=== PATIENT | female | born 1995 | race Caucasian/White ===

== ENCOUNTER 2020-01-07 22:16 | Observation (INO) | payer OTHER, SELFPAY ==
--- NOTE | 2020-01-07 22:15 | PC.NURSE ---
Report given to MICHAEL Mcmillan in OB.
[2020-01-07 22:25] VITALS: BP 139/89; PULSE 105; RESP 20; TEMP 37.2; BMI 30.9
[2020-01-07 23:01] VITALS: BP 122/70; PULSE 102
[2020-01-07 23:18] VITALS: BP 122/70; PULSE 86; RESP 18
--- NOTE | 2020-01-07 23:30 | OBADM ---
This patient, Keshia Huston, admitted to the OB room OB Post 113 for observation. Patient/family oriented to hospital policies and general routines including ID bracelet, bed and alarms, visiting hours, pain management, procedures, bathroom and other care routines, personal items, smoking policy, room service/diet, and visiting hours. Patient/Family are encouraged to report perceived risks to care and to ask questions if they do not understand what they are told or what they should do.
--- NOTE | 2020-01-13 08:52 | PM.OBTRLD ---
OB - Triage/Final Diagnosis Visit Information Date of evaluation: 01/08/20 Reason for evaluation: threatened labor
== END 2020-01-07 23:20 | disposition home or self-care (01) ==
PROVIDERS: Admitting Provider Obstetrics & Gynecology; PCP Physician Assistant; Visit Provider Obstetrics & Gynecology
DX: O47.02 False labor before 37 completed weeks of gestation, second trimester (principal); Z3A.26 26 weeks gestation of pregnancy
CPT/HCPCS: G0378; G0379

== ENCOUNTER 2020-02-15 17:05 | Outpatient (CLI) | payer OTHER, SELFPAY ==
[2020-02-15] VITALS (10 sets, daily range): BP systolic 124–142; BP diastolic 73–82; PULSE 88–114; TEMP 37.4; BMI 34.7
[2020-02-15 17:45] LABS: Basophils Percent Auto 0.2 % (0.2-1.2); Eosinophils Absolute Auto 0.1 K/mm3 (0-0.3); Eosinophils Percent Auto 1.3 % (0-4.4); Hematocrit 34.2 % (37.0-47.0); Immature Granulocyte Absolute 0.06 K/mm3 (0.00-0.031); Immature Granulocyte Percent A 0.5 % (0-0.5); Lymphocytes Absolute Auto 2.19 K/mm3 (0.9-3.2); Lymphocytes Percent Auto 19.7 % (18.3-44.2); Mean Corpuscular HGB Conc 35.1 g/dl (32-36); Mean Corpuscular Volume 85.5 fl (80-100); Mean Platelet Volume 10.2 fl (7.4-10.4); Monocytes Absolute Auto 0.5 K/mm3 (0.1-0.6); Monocytes Percent Auto 4.9 % (2.6-8.5); Neutrophils Absolute Auto 8.2 K/mm3 (1.3-6.7); Neutrophils Percent Auto 73.4 % (45.5-73.1); Platelet Count Result 272 k/mm3 (150-375); Red Cell Distribution Width 12.2 % (11.5-14.5); White Blood Count 11.1 K/mm3 (4.5-10.0)
[2020-02-15 17:46] LABS: Add Urine Microscopic? NO; Appearance Urine Clear (Clear); Bilirubin Urine Negative (Negative); Blood Urine Negative (Negative); Color Urine Yellow (Yellow); Glucose Urine UA Negative (Negative); Ketones Urine Negative (Negative); Leukocyte Esterase Ur Negative LEU/UL (Negative); Nitrate Urine Negative (Negative); Protein Urine Negative (Negative); Specific Grav Ur 1.013 (1.001-1.035); Urobilinogen Urine Negative mg/dL (<2.0)
[2020-02-15 17:48] LABS: Creatinine Urine 51.7 mg/dL; Total Protein Urine Random 12 mg/dL
[2020-02-15 17:54] LABS: Alanine Aminotransferase 66 U/L (4-35); Albumin Level 3.7 g/dL (3.5-5.1); Alkaline Phosphatase 91 U/L (38-126); Anion Gap 9 mmol/L (8-16); Aspartate Amino Transferase 49 U/L (14-36); Bilirubin,Total 0.3 mg/dL (0.2-1.3); Blood Urea Nitrogen 9 mg/dL (7-17); Calcium 9.4 mg/dL (8.4-10.2); Carbon Dioxide 24 mmol/L (22-30); Chloride 101 mmol/L (98-107); Estimated Glomerular Filt Rate > 60; Glucose 101 mg/dL (65-105); Potassium 3.8 mmol/L (3.4-5.0); Sodium 134 mmol/L (137-145)
[2020-02-15] MEDS: NIFEdipine 30 MG TAB.ER.24 PO (18:35)
--- NOTE | 2020-02-15 19:04 | PC.NURSE ---
1805 - Second cup of ice water given. Pt states she does not feeling any contractions. Contractions palpate mild.
== END 2020-02-15 19:41 | disposition home or self-care (01) ==
LOC: ANHOBOP 17:15 → ANHOBPP 17:16
PROVIDERS: PCP Physician Assistant; Visit Provider Obstetrics & Gynecology
DX: O13.9 Gestational [pregnancy-induced] hypertension without significant proteinuria, unspecified trimester (principal)
CPT/HCPCS: 36415; 59025; 80053; 81003; 82570; 84156; 84550; 85025; 99199; A9270

== ENCOUNTER 2020-02-16 17:45 | Outpatient (NON) | payer OTHER, SELFPAY ==
[2020-02-16 18:26] VITALS: BMI 34.7
[2020-02-16 20:29] LABS: Collection Time Urine 24 HOURS
[2020-02-16 20:59] LABS: Patient Weight 215 Lbs; Total Volume 24 Hour Urine 2200 ml
[2020-02-16 21:09] LABS: Creatinine Clearance Urine 163.3 ml/min (75-125); Creatinine Urine 63.5 mg/dL; Total Protein Urine 24 Hr 308 MG/DAY (28-141); Total Protein Urine Random 14 mg/dL
== END 2020-02-16 17:46 ==
LOC: ANHOBOP 18:15
PROVIDERS: PCP Physician Assistant; Referring Provider Obstetrics & Gynecology; Visit Provider Obstetrics & Gynecology
DX: O16.9 Unspecified maternal hypertension, unspecified trimester (principal); Z3A.00 Weeks of gestation of pregnancy not specified
CPT/HCPCS: 81050; 82575; 84156

== ENCOUNTER 2020-03-18 13:10 | Inpatient (IN) | payer MEDICAID, SELFPAY ==
[2020-03-18] VITALS (88 sets, daily range): BP systolic 84–153; BP diastolic 53–108; PULSE 87–140; TEMP 36.8–37.6; O2SAT 97–100; BMI 36.6
[2020-03-18 11:32] LABS: Creatinine Urine 18.5 mg/dL; Total Protein Urine Random 13 mg/dL
[2020-03-18 11:36] LABS: Basophils Percent Auto 0.2 % (0.2-1.2); Eosinophils Absolute Auto 0.1 K/mm3 (0-0.3); Eosinophils Percent Auto 1.1 % (0-4.4); Hematocrit 33.6 % (37.0-47.0); Hemoglobin 11.6 g/dL (12.0-15.0); Immature Granulocyte Absolute 0.06 K/mm3 (0.00-0.031); Immature Granulocyte Percent A 0.6 % (0-0.5); Lymphocytes Absolute Auto 1.89 K/mm3 (0.9-3.2); Lymphocytes Percent Auto 17.7 % (18.3-44.2); Mean Corpuscular HGB Conc 34.5 g/dl (32-36); Mean Corpuscular Hemoglobin 29.1 pg (26-34); Mean Corpuscular Volume 84.2 fl (80-100); Mean Platelet Volume 10.9 fl (7.4-10.4); Monocytes Absolute Auto 0.5 K/mm3 (0.1-0.6); Monocytes Percent Auto 4.6 % (2.6-8.5); Neutrophils Absolute Auto 8.1 K/mm3 (1.3-6.7); Neutrophils Percent Auto 75.8 % (45.5-73.1); Platelet Count Result 296 k/mm3 (150-375); Red Blood Count 3.99 M/mm3 (4.2-5.4); Red Cell Distribution Width 12.2 % (11.5-14.5); White Blood Count 10.7 K/mm3 (4.5-10.0)
[2020-03-18 11:43] LABS: Add Urine Microscopic? YES; Appearance Urine Cloudy (Clear); Bacteria Urine 3+ /hpf; Bilirubin Urine Negative (Negative); Blood Urine Negative (Negative); Color Urine Straw (Yellow); Glucose Urine UA Negative (Negative); Ketones Urine Negative (Negative); Leukocyte Esterase Ur Trace LEU/UL (NEGATIVE); Nitrate Urine Negative (Negative); Protein Urine Negative (Negative); Specific Grav Ur 1.005 (1.001-1.035); Squamous Epithelial Cell Urine Moderate /hpf (Few); Transitional Epi Cells Urine Rare /hpf (None Seen); Urobilinogen Urine Negative mg/dL (<2.0)
[2020-03-18 11:48] LABS: Alanine Aminotransferase 70 U/L (4-35); Albumin Level 3.7 g/dL (3.5-5.1); Alkaline Phosphatase 124 U/L (38-126); Anion Gap 11 mmol/L (8-16); Aspartate Amino Transferase 60 U/L (14-36); Bilirubin,Total 0.3 mg/dL (0.2-1.3); Blood Urea Nitrogen 9 mg/dL (7-17); Calcium 9.1 mg/dL (8.4-10.2); Carbon Dioxide 20 mmol/L (22-30); Chloride 106 mmol/L (98-107); Estimated Glomerular Filt Rate > 60; Glucose 109 mg/dL (65-105); Potassium 4.2 mmol/L (3.4-5.0); Sodium 137 mmol/L (137-145); Uric Acid 4.8 mg/dL (2.5-7.5)
[2020-03-18] MEDS: LACTATED RINGERS 1,000 ML 125 ML IV CONT ×2 (14:41→20:12)
[2020-03-18] MEDS: OXYTOCIN 30 UNITS/NS 500 ML 30 UNITS/500 ML BAG 6 UNITS IV CONT (14:42)
--- NOTE | 2020-03-18 14:53 | LDADM ---
This patient, Keshia Huston, was admitted to Labor/Delivery/Recovery 107 on 03/18/20 at 13:10. Plans for labor, pain management and were discussed with patient. Patient/family oriented to hospital policies and general routines including ID bracelet, bed and alarms, visiting hours, pain management, procedures, bathroom and other care routines, personal items, smoking policy, room service/diet and guest tray routines, security routines, and visiting hours. Patient/Family are encouraged to report perceived risks to care and to ask questions if they do not understand what they are told or what they should do. See OBIX for further documentation.
--- NOTE | 2020-03-18 14:55 | PC.NURSE ---
1253-S.Krzysztof [facility] called with lab results and bp's. Stated she would discuss with and call back with further orders.
--- NOTE | 2020-03-18 14:56 | PC.NURSE ---
1258-S.Krzysztof [facility]UARE[facility] called back in with orders to keep pt for induction with cervidil. Repeat labs in 12 hrs.
--- NOTE | 2020-03-18 16:27 | WPDOBADMIT ---
Obstetrics - Admit Note Admission Note: record reviewed. No pertinent additions to the history and/or any subsequent changes in the physical findings that are not consistent with the expected course of the were found. admit for MIL for preeclampsia, consulted with dr. kinsey, cervix /3, arom large amount of clear odorless fluid Additions to the history and/or subsequent changes in the physical findings follow. None.
--- NOTE | 2020-03-18 18:58 | WPDANESEPP ---
Anes - Eval Pre Procedure Procedure: labor epidural Date/Time: 03/18/20 18:58 Surgeon: Henrry Preop Diagnosis: labor pain Pre Op Diagnosis: Hip Eval Patient Data Age: 25 Gender: F Height: 1.68 m Weight: 102.75 kg Last Vital Signs Temp 37.0 C 03/18/20 16:33 Pulse 103 H 03/18/20 18:45 BP 125/77 03/18/20 18:45 Allergies Allergy/AdvReac Type Severity Reaction Status Date / Time No Known Allergies Allergy Verified 03/14/20 12:35 Home Medications Medication Instructions Recorded Confirmed Type PNV cmb#95-ferrous fumarate-FA 1 tablet PO DAILY 01/07/20 03/18/20 History [] nifedipine [Procardia XL] 30 mg PO DAILY #30 tablet 02/15/20 03/18/20 Rx famotidine [Pepcid] 20 mg PO BID 03/14/20 03/18/20 History Laboratory Tests 03/18/20 03/18/20 03/18/20 10:54 10:54 10:54 WBC 10.7 K/mm3 H K/mm3 (4.5-10.0) RBC 3.99 M/mm3 L M/mm3 (4.2-5.4) Hgb 11.6 g/dL L g/dL (12.0-15.0) Hct 33.6 % L % (37.0-47.0) MCV 84.2 fl fl (80-100) MCH 29.1 pg pg (26-34) MCHC 34.5 g/dl g/dl (32-36) RDW 12.2 % % (11.5-14.5) Plt Count 296 k/mm3 k/mm3 (150-375) MPV 10.9 fl H fl (7.4-10.4) Immature Gran % (Auto) 0.6 % H % (0-0.5) Neut % (Auto) 75.8 % H % (45.5-73.1) Lymph % (Auto) 17.7 % L % (18.3-44.2) [place] % (Auto) 4.6 % % (2.6-8.5) Eos % (Auto) 1.1 % % (0-4.4) Baso % (Auto) 0.2 % % (0.2-1.2) Lymph # (Auto) 1.89 K/mm3 K/mm3 (0.9-3.2) [place] # (Auto) 0.5 K/mm3 K/mm3 (0.1-0.6) Eos # (Auto) 0.1 K/mm3 K/mm3 (0-0.3) Baso # (Auto) 0.0 K/mm3 K/mm3 (0.0-0.1) Abs Immat Gran (auto) 0.06 K/mm3 H K/mm3 (0.00-0.031) Absolute Neuts (auto) 8.1 K/mm3 H K/mm3 (1.3-6.7) Absolute Nucleated RBC 0.0 K/mm3 K/mm3 (0.0-0.012) Nucleated RBC % 0.0 % % (0.0-0.2) Sodium Potassium Chloride Carbon Dioxide Anion Gap BUN Creatinine Estim Creat Clear Calc Estimated GFR Glucose Uric Acid Calcium Total Bilirubin AST ALT Alkaline Phosphatase Total Protein Albumin Urine Color Straw (Yellow) Urine Appearance Cloudy H (Clear) Urine pH 7.0 (5.0-9.0) Ur Specific [place] 1.005 (1.001-1.035) Urine Protein Negative mg/dL mg/dL (Negative) Urine Glucose (UA) Negative mg/dL mg/dL (Negative) Urine Ketones Negative mg/dL mg/dL (Negative) Ur Blood (Man) Negative (Negative) Urine Nitrate Negative (Negative) Urine Bilirubin Negative (Negative) Urine Urobilinogen Negative mg/dL mg/dL (<2.0) Ur Leukocyte Esterase Trace DONNA/UL H DONNA/UL (NEGATIVE) Urine RBC 3-5 /hpf H /hpf (0-2) Urine WBC 10-15 /hpf H /hpf (0-3) Ur Squamous Epith Cells Moderate /hpf H /hpf (Few) Ur Transition Epith Cell Rare /hpf /hpf (None Seen) Urine Bacteria 3+ /hpf H /hpf Hyaline Casts 3-4 /lpf H /lpf (None) U Random Total Protein 13 mg/dL mg/dL Urine Creatinine 18.5 mg/dL mg/dL RPR Blood Type Antibody Screen 03/18/20 03/18/20 03/18/20 10:54 13:33 14:28 WBC RBC Hgb Hct MCV MCH MCHC RDW Plt Count MPV Immature Gran % (Auto) Neut % (Auto) Lymph % (Auto) [place] % (Auto) Eos % (Auto) Baso % (Auto) Lymph # (Auto) [place] # (Auto)
--- NOTE | 2020-03-18 23:51 | P.PCNOB_ITS ---
OB - Delivery Note Procedure Delivery date: 03/18/20 Procedure: Vaginal delivery. events: Labor < 37 Weeks and Pre-Eclampsia Intrapartal events: Mild Preeclampsia Induction method: AROM and per pitocin protocol Delivery monitor: external FHT and external uterine Route of delivery: Episiotomy description: None Laceration Description: None Specimen: Yes Estimated blood loss (mL): 155 Anesthesia type: Epidural Disposition: other () [place] Baby Date of : 03/18/20 Time of : 23:36 Weeks of gestation at delivery: 36 Infant gender: Female Weight (pounds): 6 Weight (ounces): 10 presentation: vertex position: Right Occiput Anterior Placenta delivery description: Spontaneous cord vessel description: 3 Vessels and Clamped/Cut score one minute: 7 score five minutes: 9 Narrative: Mother and baby skin to skin and in stable condition.
[2020-03-19] VITALS (13 sets, daily range): BP systolic 95–156; BP diastolic 29–90; PULSE 76–123; RESP 13–18; TEMP 36.7–37.3; O2SAT 95–98
--- NOTE | 2020-03-19 00:01 | PM.IMHP ---
H&P: HPI History of Present Illness Date/Time: 03/19/20 00:01 Chief complaint: Hip Eval Narrative: Keshia Huston is a 25 year old female [facility] Family History Family History Grandparent Diabetes mellitus Grandparent Cerebrovascular accident Social History Social History Smoking status: Never smoker Substance use: never Spiritual care concerns: No Meds Home Medications and Allergies Home Medications Medication Instructions Recorded Confirmed Type PNV cmb#95-ferrous fumarate-FA 1 tablet PO DAILY 01/07/20 03/18/20 History [] nifedipine [Procardia XL] 30 mg PO DAILY #30 tablet 02/15/20 03/18/20 Rx famotidine [Pepcid] 20 mg PO BID 03/14/20 03/18/20 History Allergies Allergy/AdvReac Type Severity Reaction Status Date / Time No Known Allergies Allergy Verified 03/14/20 12:35 Vital Signs Vital Signs - 24 hr 03/18/20 11:09 03/18/20 11:15 03/18/20 11:16 Temperature 37.4 C Pulse Rate 112 H 99 Blood Pressure 138/86 135/84 Blood Pressure [Left Arm] Pulse Oximetry 03/18/20 11:31 03/18/20 11:46 03/18/20 12:01 Temperature Pulse Rate 96 95 106 H Blood Pressure 137/90 134/79 131/56 L Blood Pressure [Left Arm] Pulse Oximetry 03/18/20 12:07 03/18/20 14:05 03/18/20 14:15 Temperature Pulse Rate 106 H 91 104 H Blood Pressure 146/89 H 141/85 H Blood Pressure [Left Arm] 131/56 L Pulse Oximetry 03/18/20 14:45 03/18/20 15:00 03/18/20 15:22 Temperature 36.8 C Pulse Rate 102 H 100 114 H Blood Pressure 145/85 H 141/75 H 131/81 Blood Pressure [Left Arm] Pulse Oximetry 03/18/20 15:30 03/18/20 15:45 03/18/20 16:00 Temperature Pulse Rate 105 H 98 99 Blood Pressure 135/89 125/81 133/78 Blood Pressure [Left Arm] Pulse Oximetry 03/18/20 16:15 03/18/20 16:30 03/18/20 16:33 Temperature 37.0 C Pulse Rate 99 102 H Blood Pressure 136/91 H 145/79 H Blood Pressure [Left Arm] Pulse Oximetry 03/18/20 16:45 03/18/20 17:00 03/18/20 17:16 Temperature Pulse Rate 105 H 99 117 H Blood Pressure 131/84 132/88 133/108 H Blood Pressure [Left Arm] Pulse Oximetry 03/18/20 17:30 03/18/20 17:45 03/18/20 18:00 Temperature Pulse Rate 106 H 100 101 H Blood Pressure 133/84 130/80 145/79 H Blood Pressure [Left Arm] Pulse Oximetry 03/18/20 18:15 03/18/20 18:30 03/18/20 18:45 Temperature Pulse Rate 95 101 H 103 H Blood Pressure 135/80 139/80 125/77 Blood Pressure [Left Arm] Pulse Oximetry 03/18/20 19:00 03/18/20 19:15 03/18/20 19:31 Temperature Pulse Rate 115 H 111 H 116 H Blood Pressure 129/80 84/56 L 143/72 H Blood Pressure [Left Arm] Pulse Oximetry 03/18/20 19:46 03/18/20 20:09 03/18/20 20:11 Temperature Pulse Rate 99 109 H Blood Pressure 123/56 L 153/86 H Blood Pressure [Left Arm] Pulse Oximetry 99 03/18/20 20:14 03/18/20 20:15 03/18/20 20:19 Temperature Pulse Rate 113 H Blood Pressure 137/87 Blood Pressure [Left Arm] Pulse Oximetry 100 100 03/18/20 20:21 03/18/20 20:23 03/18/20 20:24 Temperature Pulse Rate 102 H 115 H Blood Pressure 141/73 H 127/71 Blood Pressure [Left Arm] Pulse Oximetry 100 03/18/20 20:25 03/18/20 20:26 03/18/20 20:28 Temperature Pulse Rate 98 106 H Blood Pressure 137/72 137/73 Blood Pressure [Left Arm] Pulse Oximetry 98 03/18/20 20:30 03/18/20 20:31 03/18/20 20:36 Temperature Pulse Rate 107 H Blood Pressure 132/67 Blood Pressure [Left Arm] Pulse Oximetry 98 98 03/18/20 20:41 03/18/20 20:45 03/18/20 20:46 Temperature Pulse Rate 100 Blood Pressure 132/76 Blood Pressure [Left Arm] Pulse Oximetry 99 98 03/18/20 20:51 03/18/20 20:56 03/18/20 21:00 Temperature Pulse Rate 96 Blood Pressure 134/79 Blood Pressure [Left Arm]
[2020-03-19] MEDS: OXYTOCIN 30 UNITS/NS 500 ML 30 UNITS/500 ML BAG 125 UNITS IV CONT (00:17)
[2020-03-19] MEDS: IBUPROFEN 600 MG TABLET PO ×3 (01:58→15:59)
[2020-03-19] MEDS: WITCH HAZEL 40 PADS 1 PAD TOPICAL (01:59)
[2020-03-19] MEDS: BENZOCAINE 20% AER SPR (*SP) 56 GM CAN 1 SPRAY TOPICAL (02:03)
[2020-03-19 05:34] LABS: Hematocrit 29.4 % (37.0-47.0)
[2020-03-19 05:58] LABS: Alanine Aminotransferase 71 U/L (4-35); Albumin Level 2.8 g/dL (3.5-5.1); Alkaline Phosphatase 100 U/L (38-126); Anion Gap 5 mmol/L (8-16); Aspartate Amino Transferase 70 U/L (14-36); Bilirubin,Total 0.4 mg/dL (0.2-1.3); Blood Urea Nitrogen 9 mg/dL (7-17); Calcium 8.7 mg/dL (8.4-10.2); Carbon Dioxide 24 mmol/L (22-30); Chloride 104 mmol/L (98-107); Estimated CRCL calculation 146 ml/min; Estimated Glomerular Filt Rate > 60; Glucose 112 mg/dL (65-105); Potassium 3.7 mmol/L (3.4-5.0); Sodium 133 mmol/L (137-145); Uric Acid 5.2 mg/dL (2.5-7.5)
[2020-03-19 07:35] LABS: Rapid Plasma Reagin Non-Reactive (NonReactive)
--- NOTE | 2020-03-19 07:40 | WPDANLDPN2 ---
Anes-Prog Note L&D Date/Time: 03/19/20 07:40 Comfortable throughout: labor and delivery Neuraxial method: epidural Epidural/Spinal procedure site: clean & non-tender Neuro status: Neuro function grossly intact. Cardiovascular status: normal Respiratory status: normal Airway patency: baseline Mental status: baseline Post-Op hydration status: normal Vital Signs: Last Vital Signs Temp 36.7 C 03/19/20 02:30 Pulse 103 H 03/19/20 02:30 Resp 13 03/19/20 02:30 BP 117/69 03/19/20 02:30 Pulse Ox 95 03/19/20 02:30 Pain score (VAS): 1 I/O: Intake & Output 03/18/20 03/18/20 03/19/20 15:59 23:59 07:59 Intake Total 1240 500 Output Total 200 65 Balance 1040 435 Post-procedural complaints: none Patient feedback: Patient satisfied with anesthetic care.
--- NOTE | 2020-03-19 07:46 | PM.OBPNVD ---
OB - PN: Subj Subjective Date/time seen: 03/19/20 07:46 Doing very well. . Pain controlled with motrin and ice. No concerns. OB - PN: Obj Data Labs CBC & Chem 7: 03/19/20 05:07 03/19/20 05:07 Labs: Laboratory Results - last 24 hr 03/18/20 03/18/20 03/18/20 10:54 10:54 10:54 WBC 10.7 H RBC 3.99 L Hgb 11.6 L Hct 33.6 L MCV 84.2 MCH 29.1 MCHC 34.5 RDW 12.2 Plt Count 296 MPV 10.9 H Immature Gran % (Auto) 0.6 H Neut % (Auto) 75.8 H Lymph % (Auto) 17.7 L [place] % (Auto) 4.6 Eos % (Auto) 1.1 Baso % (Auto) 0.2 Lymph # (Auto) 1.89 [place] # (Auto) 0.5 Eos # (Auto) 0.1 Baso # (Auto) 0.0 Abs Immat Gran (auto) 0.06 H Absolute Neuts (auto) 8.1 H Absolute Nucleated RBC 0.0 Nucleated RBC % 0.0 Sodium Potassium Chloride Carbon Dioxide Anion Gap BUN Creatinine Estim Creat Clear Calc Estimated GFR Glucose Uric Acid Calcium Total Bilirubin AST ALT Alkaline Phosphatase Total Protein Albumin Urine Color Straw Urine Appearance Cloudy H Urine pH 7.0 Ur Specific [place] 1.005 Urine Protein Negative Urine Glucose (UA) Negative Urine Ketones Negative Ur Blood (Man) Negative Urine Nitrate Negative Urine Bilirubin Negative Urine Urobilinogen Negative Ur Leukocyte Esterase Trace H Urine RBC 3-5 H Urine WBC 10-15 H Ur Squamous Epith Cells Moderate H Ur Transition Epith Cell Rare Urine Bacteria 3+ H Hyaline Casts 3-4 H U Random Total Protein 13 Urine Creatinine 18.5 RPR Blood Type Antibody Screen 03/18/20 03/18/20 03/18/20 10:54 13:33 14:28 WBC RBC Hgb Hct MCV MCH MCHC RDW Plt Count MPV Immature Gran % (Auto) Neut % (Auto) Lymph % (Auto) [place] % (Auto) Eos % (Auto) Baso % (Auto) Lymph # (Auto) [place] # (Auto) Eos # (Auto) Baso # (Auto) Abs Immat Gran (auto) Absolute Neuts (auto) Absolute Nucleated RBC Nucleated RBC % Sodium 137 Potassium 4.2 Chloride 106 Carbon Dioxide 20 L Anion Gap 11 BUN 9 Creatinine 0.50 L Estim Creat Clear Calc Not Reportable Estimated GFR > 60 Glucose 109 H Uric Acid 4.8 Calcium 9.1 Total Bilirubin 0.3 AST 60 H ALT 70 H Alkaline Phosphatase 124 Total Protein 7.0 Albumin 3.7 Urine Color Urine Appearance Urine pH Ur Specific [place] Urine Protein Urine Glucose (UA) Urine Ketones Ur Blood (Man) Urine Nitrate Urine Bilirubin Urine Urobilinogen Ur Leukocyte Esterase Urine RBC Urine WBC Ur Squamous Epith Cells Ur Transition Epith Cell Urine Bacteria Hyaline Casts U Random Total Protein Urine Creatinine RPR Non-reactive Blood Type B Positive Antibody Screen Negative 03/19/20 03/19/20 05:07 05:07 WBC RBC Hgb 10.0 L Hct 29.4 L MCV MCH MCHC RDW Plt Count MPV Immature Gran % (Auto) Neut % (Auto) Lymph % (Auto) [place] % (Auto) Eos % (Auto) Baso % (Auto) Lymph # (Auto) [place] # (Auto) Eos # (Auto) Baso # (Auto) Abs Immat Gran (auto) Absolute Neuts (auto) Absolute Nucleated RBC Nucleated RBC % Sodium 133 L Potassium 3.7 Chloride 104 Carbon Dioxide 24 Anion Gap 5 L BUN 9 Creatinine 0.60 L Estim Creat Clear Calc 146 Estimated GFR > 60 Glucose 112 H Uric Acid 5.2 Calcium 8.7 Total Bilirubin 0.4 AST 70 H ALT 71 H Alkaline Phosphatase 100 Total Protein 6.0 L Albumin 2.8 L Urine Color Urine Appearance Urine pH Ur Specific [place] Urine Protein Urine Glucose (UA) Urine Ketones Ur Blood (Man) Urine Nitrate Urine Bilirubin Urine Urobilinogen Ur Leukocyte Esterase Urine RBC Urine WBC Ur Squamous Epith Cells
--- NOTE | 2020-03-19 08:00 | PC.NURSE ---
Consult with pt., mother reports she has been given a nipple shield for inverted nipples. Mother states last feeding infant was able to latch without shield, she did have discomfort with the feeding. Reviewed shield use and assist with latching. Discussed nipple shield precautions and possible complications.Instructions given on application and cleaning of shield. Discussed the need to initiate pumping if continues to nurse with the shield. Patient verbalizes understanding. Reviewed feeding cues, frequencies, duration of feedings, feeding elimination flow sheet, and signs of adequate intake. Requested mother call out next feeding. Instructed feeding should be initiated three hours from start of last feeding or if feeding cues are noted before. Mother voiced understanding of information shared.
[2020-03-19] MEDS: MULTIVIT/MIN/PREN/FOL AC/IRON TABLET 1 TAB PO (08:28)
[2020-03-19] MEDS: DOCUSATE SODIUM 100 MG CAPSULE PO ×2 (08:29→15:59)
--- NOTE | 2020-03-19 10:40 | PC.NURSE ---
Consulted with patient, mother states she has been given a nipple shield for inverted nipples. Nipples appear flat and will draw out with stimulation and latch assist. [place] and nipples are firm. Mother states last feeding she was able to latch without using shield, entire feeding was painful. Both nipples have a bruised line to center. Mother is very concerned infant does not have adequate intake with current feeding status. Discussed shield use and how it may assist with a deep latch. Discussed nipple shield precautions and possible complications. Instructions given on application and cleaning of shield. Discussed the need to initiate pumping if infant continues to nurse with the shield. Patient verbalizes understanding. Reviewed feeding cues, frequencies, duration of feedings, feeding elimination flow sheet, and signs of adequate intake. Demonstrated stimulation techniques to wake for feeding. Assisted with to breast. Reviewed positioning/alignment in football, holding breast in C hold and guided asymmetrical latch on. Infant was unable to latch correctly, she will latch to part of nipple and not draw entire nipple in. Instructed on Latch Assist to draw out nipple. Nipple will draw out. is unable to draw entire nipple in. With shield in place, was able to latch to tip of shield only. Unable to correct latch to a deeper latch. Infant nursed sleepily with weak bursts of suckling followed with long pausing. Reviewed signs of a correct latch, effective nursing and suck swallow ratio. was unable to maintain latch without discomfort to mother. Nipple care reviewed. Suggested mother stimulate while feeding to keep infant awake and nursing for increased intake and to assist with maintaining latch. Feeding options discussed. Mother will initiate pumping and supplementing 15mls after each feeding. Instructed mother to call out for RN assistance if she is unable to latch infant for feeding or she has discomfort with nursing. Instructed feeding should be initiated three hours from start of last feeding or if feeding cues are noted before. Mother voiced understanding of information shared.
--- NOTE | 2020-03-19 12:38 | PC.NURSE ---
Breast pump provided due to ineffective feeding/nipple shield use. Instructions given on breast pump care and usage, pumping schedule, nipple care, and collection and storage of breast milk. Encouraged [id number], breast massage and manual expression to stimulate supply. Assessed patient for correct flange size, placement and draw. Patient verbalizes and demonstrates understanding of instructions.
[2020-03-19] MEDS: TETANUS,DIPHTHERIA,AC PERTUSSIS ADULT (0.5 ML) BOOSTRIX IM (15:59)
[2020-03-20] MEDS: IBUPROFEN 600 MG TABLET PO ×2 (04:53→16:29)
[2020-03-20] MEDS: WITCH HAZEL 40 PADS 1 PAD TOPICAL (04:56)
--- NOTE | 2020-03-20 07:53 | PM.OBPNVD ---
OB - PN: Subj Subjective Date/time seen: 03/20/20 07:53 Patient comments: no complaints baby status: doing well OB - PN: Obj Data Labs CBC & Chem 7: 03/19/20 05:07 03/19/20 05:07 OB - PN A/P Plan day: 2 Plan: routine care Comments: Repeat pih labs. Time Spent With Patient Time: Total time spent is greater than 50% in coordination of care (as documented) at patient's floor/unit and/or counseling patient: Time with patient: less than 15 minutes Review of Systems Review of Systems: All systems reviewed & are unremarkable except as noted in HPI and below Exam Narrative: Exam Narrative: Fundus firm and vaginal flow controlled. No lower ext redness ir warmth. 2+ edema. DTR 2+. Negative homans. Denies h/a, v/d or e/p. Reflexes normal. Const: General: comfortable Chest: Breast/axilla inspection: normal inspection of the breasts Resp: Effort & Inspection: normal respiratory effort Cardio: Rate: regular rate GI: GI Palp: Yes Soft to palpation Psych: Appearance: grossly normal Affect: normal affect Attitude: cooperative Thought content: Yes Normal thought content present Judgement: Good judgement present (Psych)
[2020-03-20 08:00] VITALS: BP 127/79; PULSE 78; RESP 16; TEMP 37.2; O2SAT 99
[2020-03-20] MEDS: DOCUSATE SODIUM 100 MG CAPSULE PO ×2 (09:01→16:28)
[2020-03-20] MEDS: MULTIVIT/MIN/PREN/FOL AC/IRON TABLET 1 TAB PO (09:02)
[2020-03-20 09:25] LABS: Basophils Percent Auto 0.4 % (0.2-1.2); Eosinophils Absolute Auto 0.3 K/mm3 (0-0.3); Eosinophils Percent Auto 2.6 % (0-4.4); Hematocrit 31.4 % (37.0-47.0); Hemoglobin 10.5 g/dL (12.0-15.0); Immature Granulocyte Absolute 0.07 K/mm3 (0.00-0.031); Immature Granulocyte Percent A 0.7 % (0-0.5); Lymphocytes Absolute Auto 2.11 K/mm3 (0.9-3.2); Lymphocytes Percent Auto 20.5 % (18.3-44.2); Mean Corpuscular HGB Conc 33.4 g/dl (32-36); Mean Corpuscular Hemoglobin 28.7 pg (26-34); Mean Corpuscular Volume 85.8 fl (80-100); Mean Platelet Volume 10.4 fl (7.4-10.4); Monocytes Absolute Auto 0.4 K/mm3 (0.1-0.6); Monocytes Percent Auto 3.8 % (2.6-8.5); Neutrophils Absolute Auto 7.4 K/mm3 (1.3-6.7); Platelet Count Result 248 k/mm3 (150-375); Red Blood Count 3.66 M/mm3 (4.2-5.4); Red Cell Distribution Width 12.5 % (11.5-14.5); White Blood Count 10.3 K/mm3 (4.5-10.0)
[2020-03-20 09:40] LABS: Alanine Aminotransferase 86 U/L (4-35); Albumin Level 3.3 g/dL (3.5-5.1); Alkaline Phosphatase 101 U/L (38-126); Anion Gap 6 mmol/L (8-16); Aspartate Amino Transferase 85 U/L (14-36); Bilirubin,Total 0.4 mg/dL (0.2-1.3); Blood Urea Nitrogen 9 mg/dL (7-17); Calcium 8.8 mg/dL (8.4-10.2); Carbon Dioxide 25 mmol/L (22-30); Chloride 106 mmol/L (98-107); Estimated CRCL calculation 146 ml/min; Estimated Glomerular Filt Rate > 60; Glucose 152 mg/dL (65-105); Potassium 3.9 mmol/L (3.4-5.0); Sodium 137 mmol/L (137-145); Uric Acid 5.1 mg/dL (2.5-7.5)
--- NOTE | 2020-03-20 10:30 | PC.NURSE ---
Consult with pt., mother states she has continued to bottle feed during the night. Mother is pumping at times. Discussed regular pumping to stimulate milk supply. Mother states is having difficulties with feeding and will stay another day. Offered to assist with at breast. Mother reports she would like infant to resolve feeding issues with the bottle and return to breast once her milk is in. .
[2020-03-20 19:35] VITALS: BP 124/76; PULSE 86; RESP 16; TEMP 36.6
[2020-03-21] MEDS: IBUPROFEN 600 MG TABLET PO ×2 (05:35→13:05)
[2020-03-21 06:00] LABS: Basophils Percent Auto 0.4 % (0.2-1.2); Eosinophils Absolute Auto 0.3 K/mm3 (0-0.3); Eosinophils Percent Auto 3.7 % (0-4.4); Hematocrit 33.2 % (37.0-47.0); Hemoglobin 10.8 g/dL (12.0-15.0); Immature Granulocyte Absolute 0.05 K/mm3 (0.00-0.031); Immature Granulocyte Percent A 0.6 % (0-0.5); Lymphocytes Absolute Auto 3.01 K/mm3 (0.9-3.2); Lymphocytes Percent Auto 33.5 % (18.3-44.2); Mean Corpuscular HGB Conc 32.5 g/dl (32-36); Mean Corpuscular Hemoglobin 28.6 pg (26-34); Mean Corpuscular Volume 88.1 fl (80-100); Mean Platelet Volume 10.3 fl (7.4-10.4); Monocytes Absolute Auto 0.7 K/mm3 (0.1-0.6); Monocytes Percent Auto 7.2 % (2.6-8.5); Neutrophils Absolute Auto 4.9 K/mm3 (1.3-6.7); Neutrophils Percent Auto 54.6 % (45.5-73.1); Platelet Count Result 269 k/mm3 (150-375); Red Blood Count 3.77 M/mm3 (4.2-5.4); Red Cell Distribution Width 12.3 % (11.5-14.5)
[2020-03-21 06:28] LABS: Alanine Aminotransferase 93 U/L (4-35); Albumin Level 3.5 g/dL (3.5-5.1); Alkaline Phosphatase 94 U/L (38-126); Anion Gap 6 mmol/L (8-16); Aspartate Amino Transferase 77 U/L (14-36); Bilirubin,Total 0.3 mg/dL (0.2-1.3); Blood Urea Nitrogen 10 mg/dL (7-17); Calcium 9.1 mg/dL (8.4-10.2); Carbon Dioxide 30 mmol/L (22-30); Chloride 104 mmol/L (98-107); Estimated CRCL calculation 127 ml/min; Estimated Glomerular Filt Rate > 60; Glucose 89 mg/dL (65-105); Potassium 3.7 mmol/L (3.4-5.0); Sodium 140 mmol/L (137-145); Uric Acid 5.3 mg/dL (2.5-7.5)
--- NOTE | 2020-03-21 07:44 | P.PNOB_ITS ---
OB - PN: Subj Subjective Date/time seen: 03/21/20 07:44 Patient comments: no complaints baby status: doing well OB - PN: Obj Data Labs CBC & Chem 7: 03/21/20 05:18 03/21/20 05:19 Labs: Laboratory Results - last 24 hr 03/20/20 03/20/20 03/21/20 09:17 09:17 05:18 WBC 10.3 H 9.0 RBC 3.66 L 3.77 L Hgb 10.5 L 10.8 L Hct 31.4 L 33.2 L MCV 85.8 88.1 MCH 28.7 28.6 MCHC 33.4 32.5 RDW 12.5 12.3 Plt Count 248 269 MPV 10.4 10.3 Immature Gran % (Auto) 0.7 H 0.6 H Neut % (Auto) 72.0 54.6 Lymph % (Auto) 20.5 33.5 [place] % (Auto) 3.8 7.2 Eos % (Auto) 2.6 3.7 Baso % (Auto) 0.4 0.4 Lymph # (Auto) 2.11 3.01 [place] # (Auto) 0.4 0.7 H Eos # (Auto) 0.3 0.3 Baso # (Auto) 0.0 0.0 Abs Immat Gran (auto) 0.07 H 0.05 H Absolute Neuts (auto) 7.4 H 4.9 Absolute Nucleated RBC 0.0 0.0 Nucleated RBC % 0.0 0.0 Sodium 137 Potassium 3.9 Chloride 106 Carbon Dioxide 25 Anion Gap 6 L BUN 9 Creatinine 0.60 L Estim Creat Clear Calc 146 Estimated GFR > 60 Glucose 152 H Uric Acid 5.1 Calcium 8.8 Total Bilirubin 0.4 AST 85 H ALT 86 H Alkaline Phosphatase 101 Total Protein 6.0 L Albumin 3.3 L 03/21/20 05:19 WBC RBC Hgb Hct MCV MCH MCHC RDW Plt Count MPV Immature Gran % (Auto) Neut % (Auto) Lymph % (Auto) [place] % (Auto) Eos % (Auto) Baso % (Auto) Lymph # (Auto) [place] # (Auto) Eos # (Auto) Baso # (Auto) Abs Immat Gran (auto) Absolute Neuts (auto) Absolute Nucleated RBC Nucleated RBC % Sodium 140 Potassium 3.7 Chloride 104 Carbon Dioxide 30 Anion Gap 6 L BUN 10 Creatinine 0.70 Estim Creat Clear Calc 127 Estimated GFR > 60 Glucose 89 Uric Acid 5.3 Calcium 9.1 Total Bilirubin 0.3 AST 77 H ALT 93 H Alkaline Phosphatase 94 Total Protein 6.0 L Albumin 3.5 OB - PN A/P Plan day: 3 Plan: routine care and discharge home Time Spent With Patient Time: Total time spent is greater than 50% in coordination of care (as documented) at patient's floor/unit and/or counseling patient: Exam Const: General: cooperative and healthy appearing Nutritional Appearance: average body habitus
--- NOTE | 2020-03-21 07:46 | PM.OBDSVD ---
DS: Admitting Diagnosis Admitting Diagnosis Admitting Diagnosis: Hip Eval OB - DS: Summary OB Procedures : None OB Procedures Intrapartum: Spontaneous Vag Delivery OB Procedures: : None Time Spent with Patient Time attestation: Total time spent providing and/or coordinating discharge services: DS: Data Data Completed and Pending Pending studies at discharge: Pending at discharge 03/18/20 23:44 Surgical [PTH] Routine Labs on day of discharge: Labs from last 24 hours 03/21/20 03/21/20 03/20/20 05:19 05:18 09:17 WBC 9.0 RBC 3.77 L Hgb 10.8 L Hct 33.2 L MCV 88.1 MCH 28.6 MCHC 32.5 RDW 12.3 Plt Count 269 MPV 10.3 Immature Gran % (Auto) 0.6 H Neut % (Auto) 54.6 Lymph % (Auto) 33.5 [place] % (Auto) 7.2 Eos % (Auto) 3.7 Baso % (Auto) 0.4 Lymph # (Auto) 3.01 [place] # (Auto) 0.7 H Eos # (Auto) 0.3 Baso # (Auto) 0.0 Abs Immat Gran (auto) 0.05 H Absolute Neuts (auto) 4.9 Absolute Nucleated RBC 0.0 Nucleated RBC % 0.0 Sodium 140 137 Potassium 3.7 3.9 Chloride 104 106 Carbon Dioxide 30 25 Anion Gap 6 L 6 L BUN 10 9 Creatinine 0.70 0.60 L Estim Creat Clear Calc 127 146 Estimated GFR > 60 > 60 Glucose 89 152 H Uric Acid 5.3 5.1 Calcium 9.1 8.8 Total Bilirubin 0.3 0.4 AST 77 H 85 H ALT 93 H 86 H Alkaline Phosphatase 94 101 Total Protein 6.0 L 6.0 L Albumin 3.5 3.3 L 03/20/20 09:17 WBC 10.3 H RBC 3.66 L Hgb 10.5 L Hct 31.4 L MCV 85.8 MCH 28.7 MCHC 33.4 RDW 12.5 Plt Count 248 MPV 10.4 Immature Gran % (Auto) 0.7 H Neut % (Auto) 72.0 Lymph % (Auto) 20.5 [place] % (Auto) 3.8 Eos % (Auto) 2.6 Baso % (Auto) 0.4 Lymph # (Auto) 2.11 [place] # (Auto) 0.4 Eos # (Auto) 0.3 Baso # (Auto) 0.0 Abs Immat Gran (auto) 0.07 H Absolute Neuts (auto) 7.4 H Absolute Nucleated RBC 0.0 Nucleated RBC % 0.0 Sodium Potassium Chloride Carbon Dioxide Anion Gap BUN Creatinine Estim Creat Clear Calc Estimated GFR Glucose Uric Acid Calcium Total Bilirubin AST ALT Alkaline Phosphatase Total Protein Albumin Discharge Plan Discharge Attending physician on discharge: Latrice Sales Discharging Clinician: Kimi Blankenship Patient Disposition: Home, Self-Care Activity: pelvic rest Diet: regular Patient Instructions: Antibiotic Form Stand Alone Forms: General Discharge Information Follow-up/Referrals: Kimi Blankenship, CNM [Certified Nurse Regional Clinical Director] - 1 Week Discharge Medications: Continued PNV cmb#95-ferrous fumarate-FA [] 28 mg iron- 800 mcg Tablet 1 tablet PO DAILY RF: 0 Discontinued nifedipine [Procardia XL] 30 mg Tablet Extended Release 24hr 30 mg PO DAILY Qty: 30 RF: 0 famotidine [Pepcid] 20 mg Tablet 20 mg PO BID RF: 0 Date of admission: 03/18/20 13:10 Primary Care Provider: Susan,Demi Admitting Provider: Latrice Sales Attending physician on admission: Latrice Sales Condition: Stable
[2020-03-21 07:50] VITALS: BP 124/71; PULSE 93; RESP 18; TEMP 36.6; O2SAT 98
--- NOTE | 2020-03-21 08:00 | PC.NURSE ---
Pt introductions made and plan of care discussed per post , pain management, breast feeding, pumping, daily care activities and pending discharge to home. PT verbalized understanding of such care.
[2020-03-21] MEDS: ACETAMINOPHEN 325 MG TABLET 650 MG PO ×2 (08:31→13:04)
[2020-03-21 08:32] VITALS: PULSE 93; RESP 18; O2SAT 98
[2020-03-21] MEDS: MULTIVIT/MIN/PREN/FOL AC/IRON TABLET 1 TAB PO (08:32)
[2020-03-21] MEDS: DOCUSATE SODIUM 100 MG CAPSULE PO (08:32)
--- NOTE | 2020-03-21 11:30 | PC.NURSE ---
Consult with pt., mother states she wishes to pump and bottle feed. Reviewed instructions given on breast pump care and usage, pumping schedule, nipple care, and collection and storage of breast milk. Encouraged [id number], breast massage and manual expression to stimulate supply. Assessed patient for correct flange size, placement and draw. Patient verbalizes and demonstrates understanding of instructions. Assisted mother with a pump thru her insurance.
[2020-03-21 13:23] LABS: Hematocrit 30.2 % (37.0-47.0); Hemoglobin 10.1 g/dL (12.0-15.0); Mean Corpuscular HGB Conc 33.4 g/dl (32-36); Mean Corpuscular Hemoglobin 29.2 pg (26-34); Mean Corpuscular Volume 87.3 fl (80-100); Mean Platelet Volume 9.7 fl (7.4-10.4); Platelet Count Result 275 k/mm3 (150-375); Red Blood Count 3.46 M/mm3 (4.2-5.4); Red Cell Distribution Width 12.4 % (11.5-14.5); White Blood Count 8.9 K/mm3 (4.5-10.0)
[2020-03-21 13:35] LABS: Alanine Aminotransferase 101 U/L (4-35); Albumin Level 3.3 g/dL (3.5-5.1); Alkaline Phosphatase 95 U/L (38-126); Anion Gap 7 mmol/L (8-16); Aspartate Amino Transferase 92 U/L (14-36); Bilirubin,Total 0.3 mg/dL (0.2-1.3); Blood Urea Nitrogen 10 mg/dL (7-17); Calcium 8.7 mg/dL (8.4-10.2); Carbon Dioxide 27 mmol/L (22-30); Chloride 106 mmol/L (98-107); Estimated CRCL calculation 146 ml/min; Estimated Glomerular Filt Rate > 60; Glucose 115 mg/dL (65-105); Potassium 3.8 mmol/L (3.4-5.0); Sodium 140 mmol/L (137-145)
--- NOTE | 2020-03-21 17:15 | PC.NURSE ---
PT received discharged instructions per protocol and verbalized understanding of such instructions.
--- NOTE | 2020-03-21 17:55 | PC.NURSE ---
PT discharged to home ambulatory accompanied by spouse and and taken to waiting car. follow up appts confirmed
[2020-03-24 11:43] VITALS: BP 136/88; PULSE 99; RESP 20; TEMP 36.9; O2SAT 100
== END 2020-03-21 17:55 | disposition home or self-care (01) | DRG 560 ==
LOC: ANHOBOP 13:25 → ANHLDR 13:25 → ANHOB2 03-19 02:46
PROVIDERS: Advanced Practice Midwife; Admitting Provider Obstetrics & Gynecology; PCP Physician Assistant; Visit Provider Obstetrics & Gynecology
DX: O14.04 Mild to moderate pre-eclampsia, complicating childbirth (principal); Z3A.36 36 weeks gestation of pregnancy; Z37.0 Single live birth
CPT/HCPCS: 36415; 59025; 80053; 81001; 82570; 84156; 84550; 85014; 85018; 85025; 85027; 86592; 86850; 86900; 86901; 87086; 88307; 90715; A9270; J2590; J2795; J7120

== ENCOUNTER 2020-03-22 10:58 | Outpatient (CLI) | payer MEDICAID, SELFPAY ==
[2020-03-22 11:41] LABS: Basophils Percent Auto 0.4 % (0.2-1.2); Eosinophils Absolute Auto 0.5 K/mm3 (0-0.3); Hematocrit 31.5 % (37.0-47.0); Hemoglobin 10.7 g/dL (12.0-15.0); Immature Granulocyte Absolute 0.04 K/mm3 (0.00-0.031); Immature Granulocyte Percent A 0.5 % (0-0.5); Lymphocytes Absolute Auto 1.95 K/mm3 (0.9-3.2); Mean Corpuscular Hemoglobin 28.8 pg (26-34); Mean Corpuscular Volume 84.7 fl (80-100); Mean Platelet Volume 9.6 fl (7.4-10.4); Monocytes Absolute Auto 0.4 K/mm3 (0.1-0.6); Neutrophils Absolute Auto 5.2 K/mm3 (1.3-6.7); Neutrophils Percent Auto 64.1 % (45.5-73.1); Platelet Count Result 311 k/mm3 (150-375); Red Blood Count 3.72 M/mm3 (4.2-5.4); Red Cell Distribution Width 12.2 % (11.5-14.5); White Blood Count 8.1 K/mm3 (4.5-10.0)
[2020-03-22 11:45] VITALS: BP 142/93; PULSE 95
[2020-03-22 11:56] LABS: Alanine Aminotransferase 100 U/L (4-35); Albumin Level 3.6 g/dL (3.5-5.1); Alkaline Phosphatase 100 U/L (38-126); Anion Gap 5 mmol/L (8-16); Aspartate Amino Transferase 81 U/L (14-36); Bilirubin,Total 0.3 mg/dL (0.2-1.3); Blood Urea Nitrogen 9 mg/dL (7-17); Calcium 9.3 mg/dL (8.4-10.2); Carbon Dioxide 29 mmol/L (22-30); Chloride 106 mmol/L (98-107); Estimated Glomerular Filt Rate > 60; Glucose 84 mg/dL (65-105); Potassium 4.1 mmol/L (3.4-5.0); Sodium 140 mmol/L (137-145)
[2020-03-22 12:00] VITALS: BP 122/77; PULSE 78
[2020-03-22 12:00] LABS: Uric Acid 5.3 mg/dL (2.5-7.5)
--- NOTE | 2020-03-22 12:07 | PC.NURSE ---
Called Dr. Orr with lab results and BPs. Pt denies symptoms. May D/C home to follow up in office early this week.
== END 2020-03-22 12:10 | disposition home or self-care (01) ==
LOC: ANHOBOP 11:14 → ANHLDR 11:19
PROVIDERS: Obstetrics & Gynecology; PCP Physician Assistant; Visit Provider Obstetrics & Gynecology
DX: O14.05 Mild to moderate pre-eclampsia, complicating the puerperium (principal); Z3A.36 36 weeks gestation of pregnancy
CPT/HCPCS: 36415; 80053; 84550; 85025; 99199

== ENCOUNTER 2020-06-17 17:28 | Emergency (ER) | payer OTHER, SELFPAY ==
[2020-06-17 17:43] VITALS: BP 139/83; PULSE 70; RESP 16; TEMP 37; O2SAT 99
--- NOTE | 2020-06-17 17:44 | ED.GENADULT ---
HPI - General Adult General Chief complaint: Extremity Injury, Lower Stated complaint: left 1 digit toe ingrown nail Time Seen by Provider: 06/17/20 17:41 Source: patient and RN notes reviewed Mode of arrival: ambulatory Limitations: no limitations History of Present Illness HPI narrative: 25-year-old female presents with concern for ingrown toenail with infection to the first digit of her left foot. Reports she cut her toenail 2 days ago and the area has become painful, red, with purulent discharge. She reports she has been soaking it with hydrogen peroxide and warm water with little relief. She denies any streaking, fever. MD complaint: Paronychia Related Data Allergies Allergy/AdvReac Type Severity Reaction Status Date / Time No Known Allergies Allergy Verified 06/17/20 17:32 Review of Systems Review of Systems: Narrative: CONSTITUTIONAL: Denies malaise, chills, sweats, or fever. CARDIOVASCULAR: Denies chest pain, palpitations, or edema. RESPIRATORY: Denies cough or dyspnea. SKIN: Reports red, painful area near the toenail the first digit of the left foot with purulent drainage MUSCULOSKELETAL: Denies myalgia. NEUROLOGIC: Denies numbness, weakness All systems reviewed & are unremarkable except as noted in HPI and below PMFSH Family History Family History Grandparent Diabetes mellitus Grandparent Cerebrovascular accident Social History Social History Smoking status: Never smoker Substance use: never Gender identity (if verbalized by the patient): Female Spiritual care concerns: No Comments At time of signature, agree with nursing past medical, surgical, social and family history. There is no relevant family history pertinent to the presenting complaint Exam Narrative: Exam Narrative: GENERAL: Well-appearing, well-nourished, and in no acute distress. HEAD: Normocephalic, atraumatic. EYES: PERRLA, conjunctivae clear NECK: Supple. CHEST: Speaks in full sentences. No respiratory distress. HEART: Regular rate and rhythm. Normal and equal peripheral pulses. EXTREMITIES: First digit of left foot has normal strength and sensation, normal range of motion. No edema or ecchymosis. Normal sensation with sensitivity to light touch and pain. No point tenderness. No open wounds, no skin tenting, no devitalized tissue or atrophy, no trophic changes, no obvious deformity, alignment normal, nearby joints and structures intact. Distal pulses palpable and equal bilaterally, skin warm, dry, pink. Capillary refill less than 3 seconds. SKIN: Warm, dry, no rash. Paronychia with no fluctuation noted to the toenail lateral edge of the first digit of the left foot NEURO: Alert and oriented x3. PSYCH: Normal mood and affect Course Course Emergency Course: Patient is aware of diagnosis, understands and agrees to treatment plan. Anticipatory guidance given. Patient agrees to follow-up as directed and is aware of reasons to seek care at the emergency department. Portions of this record may have been created with voice recognition software Vital Signs Vital signs: Vital Signs Temperature 98.6 F 06/17/20 17:43 Pulse Rate 70 06/17/20 17:43 Respiratory Rate 16 06/17/20 17:43 Blood Pressure 139/83 06/17/20 17:43 Pulse Oximetry 99 06/17/20 17:43 Temperature 98.6 F 06/17/20 17:43 Pulse Rate 70 06/17/20 17:43 Respiratory Rate 16 06/17/20 17:43 Blood Pressure 139/83 06/17/20 17:43 Pulse Oximetry 99 06/17/20 17:43 Reviewed. Medical Decision Making MDM Narrative Medical decision making narrative: Exam findings show no acute concerns or changes; patient is non-toxic appearing and is in no distress. Patient is appropriate for outpatient treatment and follow-up. Vital Signs Vital Signs: Vital Signs Temperature 98.6 F 06/17/20 17:43 Pulse Rate 70 06/17/20 17:43 Respiratory Rate 16
== END 2020-06-17 17:53 | disposition home or self-care (01) ==
PROVIDERS: Emergency Provider Nurse Practitioner
DX: L03.032 Cellulitis of left toe (principal); L60.0 Ingrowing nail
CPT/HCPCS: 99213; G0463

== ENCOUNTER 2021-01-21 17:36 | Inpatient (IN) | payer OTHER, SELFPAY ==
--- NOTE | ~2021-01-21 | US_ITS ---
EXAMINATION: US venous doppler LE EXAM DATE: 01/22/2021 08:14 INDICATION: Shortness of breath, chest pain, cough and elevated d-dimer. Pulmonary embolism. TECHNIQUE: Multiple grayscale, color flow and Doppler images of the lower extremity deep venous syste ms bilaterally were obtained and reviewed. There is no prior study for comparison. FINDINGS: Right side: The right common femoral, femoral and profunda veins demonstrate normal color flow, respi ratory variation, augmentation and compressibility. Compressibility, color flow confirmed within the right popliteal, posterior tibial, peroneal, and greater saphenous veins. Left side: The left common femoral, femoral and profunda veins demonstrate normal color flow, respira tory variation, augmentation and compressibility. Compressibility, color flow confirmed within the l eft popliteal, posterior tibial, peroneal, and greater saphenous veins. IMPRESSION: 1. No lower extremity deep venous thrombosis bilaterally. Reviewed, dictated and finalized at location B.
--- NOTE | ~2021-01-21 | XR_ITS ---
XR chest 2V DATE: 01/21/2021 18:30 INDICATION: Sternal chest pain. Cough with deep inspiration for 3 days. TECHNIQUE: PA and lateral views COMPARISON: 02/25/2014 2 view chest FINDINGS: Normal heart size. No hilar or mediastinal enlargement. No pulmonary infiltrate or consolid ation, pleural effusion or pulmonary vascular congestion or pneumothorax. Included skeletal structure s are normal. IMPRESSION: Negative Reviewed, dictated and finalized at location A. IMPRESSION: Negative
--- NOTE | ~2021-01-21 | CT_ITS ---
EXAMINATION: CTA chest PE protocol DATE: 01/21/2021 23:35 INDICATION: Shortness of breath, chest pain, cough. Elevated d-dimer. TECHNIQUE: Computed tomography angiography (CTA) of the chest was performed with 100 mL Omnipaque-350 intravenous contrast timed to evaluate the pulmonary arteries. Coronal maximum intensity projection 3D-reconstructions were created by the technologist. Automated exposure control and iterative reconst ruction technique were employed. Exam dose: 617.20 mGy-cm total exam DLP. COMPARISON: 01/21/2021 2 view chest FINDINGS: There is diagnostic contrast enhancement of the pulmonary arteries. There is extensive left -sided pulmonary embolism: The main pulmonary artery, proximal left upper lobe, extensive left lower lobe arterial branches with thrombus. There is evidence of minimal right lower lobe pulmonary embolism No thoracic aortic aneurysm or dissection. Heart size is normal. No right heart strain is suggested. No hilar or mediastinal mass lesion or lymphadenopathy. No pulmonary infiltrate or consolidation. Normal morphology of the adrenal glands. Included upper abdominal structures are unremarkable. IMPRESSION: Extensive left-sided pulmonary embolism, minimal right lower lobe pulmonary Dr. Tarango telephoned the report of pulmonary embolism on 01/21/2021 at 2342 hours to emergency room phy lisa Jacinto. Reviewed, dictated and finalized at Location A. Reviewed, dictated and finalized at location A. IMPRESSION: Extensive left-sided pulmonary embolism, minimal right lower lobe pulmonary Dr. Tarango telephoned the report of pulmonary embolism on 01/21/2021 at 2342 hours to emergency room physician Dr. Jacinto.
[2021-01-21 17:50] VITALS: BP 149/98; PULSE 113; RESP 20; TEMP 36.9; O2SAT 99
--- NOTE | 2021-01-21 17:56 | ECG_ITS ---
Measurements Intervals [place] Rate: 106 P: 59 MT: 138 QRS: 56 QRSD: 84 T: 41 QT: 305 QTc: 406 Interpretive Statements SINUS TACHYCARDIA ABNORMAL ECG Electronically Signed On 01-21-2021 20:13:57 CDT by Ta Luis D.O.
[2021-01-21 18:08] LABS: Basophils Percent Auto 0.3 % (0.2-1.2); Eosinophils Absolute Auto 0.1 K/mm3 (0-0.3); Eosinophils Percent Auto 1.5 % (0-4.4); Hematocrit 45.7 % (37.0-47.0); Hemoglobin 15.4 g/dL (12.0-15.0); Immature Granulocyte Absolute 0.02 K/mm3 (0.00-0.031); Immature Granulocyte Percent A 0.2 % (0-0.5); Lymphocytes Absolute Auto 2.29 K/mm3 (0.9-3.2); Lymphocytes Percent Auto 26.2 % (18.3-44.2); Mean Corpuscular HGB Conc 33.7 g/dl (32-36); Mean Corpuscular Hemoglobin 28.7 pg (26-34); Mean Corpuscular Volume 85.1 fl (80-100); Monocytes Absolute Auto 0.5 K/mm3 (0.1-0.6); Monocytes Percent Auto 5.3 % (2.6-8.5); Neutrophils Absolute Auto 5.8 K/mm3 (1.3-6.7); Neutrophils Percent Auto 66.5 % (45.5-73.1); Platelet Count Result 242 k/mm3 (150-375); Red Blood Count 5.37 M/mm3 (4.2-5.4); Red Cell Distribution Width 12.6 % (11.5-14.5); White Blood Count 8.7 K/mm3 (4.5-10.0)
[2021-01-21 18:18] LABS: Anion Gap 14 mmol/L (8-16); Blood Urea Nitrogen 12 mg/dL (7-17); Calcium 10.1 mg/dL (8.4-10.2); Carbon Dioxide 26 mmol/L (22-30); Chloride 101 mmol/L (98-107); Estimated CRCL calculation 115 ml/min; Estimated Glomerular Filt Rate > 60; Glucose 122 mg/dL (65-110); Potassium 3.9 mmol/L (3.4-5.0); Sodium 141 mmol/L (137-145)
[2021-01-21 18:30] LABS: Troponin I < 0.012 ng/mL (0.000-0.034)
[2021-01-21 18:32] LABS: Prothrombin Time 12.6 Seconds (11.1-14.7)
--- NOTE | 2021-01-21 21:24 | ED.SOB ---
HPI - SOB/Dyspnea General Chief Complaint: Shortness of Breath/Dyspnea Stated Complaint: sob, cp x 3 days Time Seen by Provider: 01/21/21 21:15 Source: patient and family Mode of arrival: ambulatory Limitations: no limitations History of Present Illness HPI Narrative: Patient is a 25-year-old female who presents for evaluation of chest pain and shortness of breath over the past 72 hours. Patient states that she awakened 2 days ago with a dull, aching chest pain over the center of her chest. No radiation to the jaw, neck, abdomen. No right upper quadrant pain or epigastric pain. No burning sensation or worsening with eating. She does report mild radiation of the pain to the back. She denies shortness of breath at the time of my assessment but reports a dull and aching chest pain has been persistent over 72 hours. No recent history of Covid. She is not vaccinated. She denies any recent upper respiratory infection. She denies leg swelling or calf pain. No recent long car or air travel. She does have a Mirena IUD, denies other hormonal contraception. She does not smoke. No recent surgery or immobility. No history of coagulopathy. No family history of sudden cardiac or myocardial infarction at young ages. Related Data Allergies Allergy/AdvReac Type Severity Reaction Status Date / Time No Known Allergies Allergy Verified 01/21/21 21:35 Review of Systems Review of Systems: CONSTITUTIONAL: Denies fever, chills, or sweats. EYES: Denies visual changes, redness, or discharge. ENT: Denies rhinorrhea, congestion, sore throat, or otalgia. CARDIOVASCULAR: Reports chest pain without palpitations or edema RESPIRATORY: Denies cough, reports shortness of breath, resolved currently GASTROINTESTINAL: Denies abdominal pain, nausea, vomiting, or diarrhea. GENITOURINARY: Denies dysuria or hematuria. SKIN: Denies rash or itching. MUSCULOSKELETAL: Denies back pain, joint pain, or myalgia. NEUROLOGIC: Denies headache, numbness, or weakness. [facility] Past Medical History Medical History Preeclampsia Family History Family History Grandparent Diabetes mellitus Grandparent Cerebrovascular accident Social History Social History Smoking status: Never smoker Substance use: never Gender identity (if verbalized by the patient): Female Spiritual care concerns: No Exam Narrative: GENERAL: Awake, alert, conversant HEAD: Normocephalic, atraumatic. EYES: PERRLA and EOMI. ENT: Nares clear, no rhinorrhea or epistaxis. Mucous membranes moist. NECK: Supple. CHEST: No respiratory distress, breathing even and non labored, no chest wall tenderness HEART: Tachycardic rate, sinus rhythm ABDOMEN:Non distended, non tender EXTREMITIES: Normal range of motion. No edema. SKIN: Warm, dry, no rash. NEURO:No focal deficits. Alert and oriented x3 Course Vital Signs Vital signs: Vital Signs Temperature 36.9 C 01/21/21 17:50 Pulse Rate 113 H 01/21/21 17:50 Respiratory Rate 20 01/21/21 17:50 Blood Pressure 149/98 H 01/21/21 17:50 Pulse Oximetry 99 01/21/21 17:50 Temperature 36.9 C 01/21/21 17:50 Pulse Rate 79 01/22/21 03:36 Respiratory Rate 19 01/22/21 03:36 Blood Pressure 115/76 01/22/21 03:36 Pulse Oximetry 99 01/22/21 03:36 MDM - SOB/Dyspnea MDM Narrative Medical decision making narrative: Patient presenting for evaluation of frontal chest pain and shortness of breath. The time of assessment, patient is mildly tachycardic, no hypoxia. She is afebrile. Symptoms do not seem infectious in nature. Considered myocarditis, pericarditis, PE given symptoms. No risk factors for PE although patient is mildly tachycardic. EKG without acute ischemic changes. Patient was given aspirin. IV access obtained and labs are drawn. No troponin elevation.
[2021-01-21 21:31] VITALS: BP 144/93; PULSE 95; RESP 17; O2SAT 98
[2021-01-21 21:53] LABS: Troponin I < 0.012 ng/mL (0.000-0.034)
--- NOTE | 2021-01-21 22:01 | PC.NURSE ---
Called and talked to Carl to add D Dimer on to lab order
[2021-01-21 22:11] LABS: D Dimer 1.82 ug/mL (<0.48)
--- NOTE | 2021-01-21 22:25 | PC.NURSE ---
2 attempts made by this RN for IV access. ED industry analyst notified, will have another RN attempt access.
[2021-01-21] MEDS: SODIUM CHLORIDE 0.9% IV 1,000 ML 999 ML IV CONT (23:10)
[2021-01-21] MEDS: KETOROLAC 15 MG/ML VIAL (*BKC) IV PUSH (23:12)
[2021-01-21 23:15] VITALS: PULSE 91; RESP 20; O2SAT 97
[2021-01-22] VITALS (22 sets, daily range): BP systolic 113–145; BP diastolic 64–98; PULSE 65–111; RESP 15–24; TEMP 36.3–36.6; O2SAT 96–100
--- NOTE | 2021-01-22 | ECHO_ITS ---
Patient Info Name: Keshia Huston Age: 25 years : 1995 Gender: Female Ht: 66 in Wt: 184 lbs BSA: 2.00 m2 HR: 84 bpm BP: 116 / 76 mmHg Heart Rhythm: Sinus Rhythm Exam Date: 01/22/2021 12:56 PM Exam Location: [facility] Patient Status: Emergency Admit Date: 01/21/2021 Staff Ordering Physician: Leticia Jacinto MD Dynamicist: Marleen Hernandez RDCS Attending Provider: Lilli Avila MD Referring Physician: Orville REYNOSO; Exam Type: CA echo doppler color flow Study Info Indications R07.89 - Other chest pain R06.02 - Shortness of breath Complete two-dimensional, color flow and Doppler transthoracic echocardiogram is performed. Summary 1. Complete two-dimensional, color flow and Doppler transthoracic echocardiogram is performed. 2. Left ventricular chamber dimension is normal. 3. Left ventricular systolic function is normal, estimated at 60-65%. 4. The left ventricular diastolic function is normal. 5. E/e' 7 is not elevated. 6. Mild pulmonary hypertension, estimated pulmonary arterial systolic pressure is 41 mmHg. Left Ventricle E/e' 7 is not elevated. Left ventricular chamber dimension is normal. Left ventricular systolic function is normal, estimated at 60-65%. The left ventricular diastolic function is normal. Right Ventricle Right ventricular systolic function is normal and with normal TAPSE 2.2 cm. Right ventricular chamber dimension is normal. Left Atria Left atrial chamber dimension is normal. Right Atria Right atrial chamber dimension is normal. Aortic Valve The aortic valve is trileaflet. There is no aortic valve stenosis. There is no aortic valve regurgitation. Pulmonic Valve There is no pulmonic regurgitation. Mitral Valve There is no mitral valve stenosis. There is no mitral valve regurgitation. Tricuspid Valve There is no tricuspid valve regurgitation. Mild pulmonary hypertension, estimated pulmonary arterial systolic pressure is 41 mmHg. Pericardium/Pleural There is no pericardial effusion. Inferior Vena Cava Normal inferior vena cava with >50% collapse upon inspiration consistent with normal right atrial pressure, 5 mmHg. Aorta The aortic root size at the sinus of Valsalva is normal. Left Ventricular Outflow Tract Name Value Normal LVOT 2D LVOT Diameter 2.0 cm LVOT Doppler LVOT Peak Gradient 5 mmHg LVOT Mean Gradient 3 mmHg LVOT VTI 20 cm LVOT VTI/AV VTI Ratio 0.9 LVOT Stroke Volume 65 ml LVOT CO 16.2 l/min LVOT CI 8.1 l/min/m2 Pulmonic Valve Name Value Normal PV Doppler PV Peak Gradient 4 mmHg Mitral Valve
[2021-01-22] MEDS: HEPARIN SOD/D5W 100 UNITS/ML 25,000 UNITS/250 ML BAG 12 UNITS IV CONT (00:33)
[2021-01-22] MEDS: HEPARIN SODIUM 5,000 UNITS/ML VIAL 5500 UNITS IV PUSH ×2 (00:36→07:35)
[2021-01-22 01:36] LABS: Troponin I < 0.012 ng/mL (0.000-0.034)
[2021-01-22 06:56] LABS: Basophils Absolute Auto 0.1 K/mm3 (0.0-0.1); Basophils Percent Auto 0.5 % (0.2-1.2); Eosinophils Absolute Auto 0.2 K/mm3 (0-0.3); Eosinophils Percent Auto 1.5 % (0-4.4); Hemoglobin 14.8 g/dL (12.0-15.0); Immature Granulocyte Absolute 0.02 K/mm3 (0.00-0.031); Immature Granulocyte Percent A 0.2 % (0-0.5); Lymphocytes Absolute Auto 3.54 K/mm3 (0.9-3.2); Lymphocytes Percent Auto 35.9 % (18.3-44.2); Mean Corpuscular HGB Conc 32.2 g/dl (32-36); Mean Corpuscular Hemoglobin 28.9 pg (26-34); Mean Corpuscular Volume 89.8 fl (80-100); Mean Platelet Volume 10.2 fl (7.4-10.4); Monocytes Absolute Auto 0.5 K/mm3 (0.1-0.6); Monocytes Percent Auto 5.1 % (2.6-8.5); Neutrophils Absolute Auto 5.6 K/mm3 (1.3-6.7); Neutrophils Percent Auto 56.8 % (45.5-73.1); Platelet Count Result 244 k/mm3 (150-375); Red Blood Count 5.12 M/mm3 (4.2-5.4); Red Cell Distribution Width 12.7 % (11.5-14.5); White Blood Count 9.9 K/mm3 (4.5-10.0)
[2021-01-22 07:05] LABS: Partial Thromboplastin Time 37.4 SECONDS (22.3-36.8)
--- NOTE | 2021-01-22 07:45 | PC.NURSE ---
pt resting quielty on stretcher. pt c/o mild sob. resting quietly on stretcher. heparin titrated per order.
[2021-01-22 14:02] LABS: Partial Thromboplastin Time 106.8 SECONDS (22.3-36.8)
--- NOTE | 2021-01-22 17:26 | ADMGEN ---
This patient, Keshia Huston, was admitted to 2 Medical Room 242-01. Patient/family oriented to hospital policies and general routines including ID bracelet, bed and alarms, visiting hours, pain management, procedures, bathroom and other care routines, personal items, smoking policy, room service/diet, and visiting hours. Information on how to activate the Rapid Response Team has been discussed. Patient/Family are encouraged to report perceived risks to care and to ask questions if they do not understand what they are told or what they should do.
[2021-01-22] MEDS: HEPARIN SOD/D5W 100 UNITS/ML 25,000 UNITS/250 ML BAG 14 UNITS IV CONT (19:44)
[2021-01-22 19:52] LABS: SARS-CoV-2 RNA PCR Negative
--- NOTE | 2021-01-22 21:00 | PM.IMHP ---
H&P: HPI History of Present Illness Date/Time: 01/22/21 21:00 Chief Complaint: Chest pain and shortness of breath. Narrative: This is a very pleasant 25-year-old female without significant medical history presented to the emergency department earlier today via private vehicle from home for evaluation of chest pain shortness of breath. When she woke from sleep on Tuesday morning she felt a bit ?off? with mild shortness of breath and perhaps an aching discomfort in her chest which she initially attributed to feelings of anxiety. Unfortunately her symptoms have continued and have gotten worse the past couple of days and she is now significantly winded when even walking a few feet. She continues to have pleuritic type chest pain throughout the anterior chest as well. Chest CTA done on arrival to the emergency department showed extensive left-sided pulmonary embolism including the main pulmonary artery, proximal left upper lobe, extensive left lower lobe arterial branches and evidence of minimal right lower lobe pulmonary emboli. She was started on a heparin drip and she has been boarding in the emergency department since last evening as it was felt that she should be evaluated by vascular surgery or Interventional Radiology at a tertiary care facility for possible intervention given her clot burden in her young age. Her vital signs have remained stable and there was no evidence of right-sided heart strain by echocardiogram. According to the emergency department physician, he has spoken with [facility] and she remains on a waiting list due to lack of beds and she is being admitted in this setting. She has no significant risk factors for blood clots. She has had a Mirena IUD in place since April 2020. She denies personal and family history of venous thromboembolism or clotting disorders. She has not had recent travel and denies a sedentary lifestyle. She has not noticed any lower extremity edema or pain. She has not had any recent illnesses, specifically denying infection with COVID. She has not received the COVID vaccination. The patient is not a smoker. No known history of malignancy or concerns for such. Currently she is resting comfortably and has no complaints. Review of Systems Review of Systems: Twelve systems were reviewed. No fever, chills, or sweats. No recent cold or flu symptoms. Weight has remained stable. No lightheadedness or dizziness. No nausea, vomiting, or diarrhea. Except as documented all other systems were reviewed and are negative. REPLACED BY [facility] Past Medical History Medical History Preeclampsia (03/2020) Surgical History Surgical History History of tonsillectomy (08/2011) Family History Family History Grandparent Diabetes mellitus Grandparent Cerebrovascular accident DVT (deep venous thrombosis) Social History Social History (Updated 01/22/21 @ 22:17 by Jennifer Loera PA-C) Social History: Surrogate decision maker: Peter Donnie dayanara. Code status: Full code. Smoking status: Never smoker Alcohol intake: never Substance use: never Substance use type: does not use Additional living arrangements comments: Resides in [place] with her aftab Green and their daughter. Additional occupation/education comments: Stay at home mom. Meds Home Medications and Allergies Home Medications Medication Instructions Recorded Confirmed Type No Home Medications 01/22/21 01/22/21 History Allergies Allergy/AdvReac Type Severity Reaction Status Date / Time No Known Allergies Allergy Verified 01/22/21 17:35 Vital Signs Vital Signs - 24 hr 01/21/21 23:15 01/22/21 00:43 01/22/21 03:36 Temperature Pulse Rate 91 90 79 Respiratory Rate 20 17 19 Blood Pressure 145/98 H 115/76 Pulse Oximetry 97 98 99 01/22/21 06:05
[2021-01-23] VITALS (10 sets, daily range): BP systolic 100–125; BP diastolic 52–83; PULSE 67–88; RESP 16–18; TEMP 36.5–37.1; O2SAT 98–100
[2021-01-23 07:12] LABS: Hematocrit 45.6 % (37.0-47.0); Hemoglobin 15.4 g/dL (12.0-15.0); Mean Corpuscular HGB Conc 33.8 g/dl (32-36); Mean Corpuscular Hemoglobin 29.5 pg (26-34); Mean Corpuscular Volume 87.4 fl (80-100); Mean Platelet Volume 9.9 fl (7.4-10.4); Platelet Count Result 217 k/mm3 (150-375); Red Blood Count 5.22 M/mm3 (4.2-5.4); Red Cell Distribution Width 12.9 % (11.5-14.5); White Blood Count 6.6 K/mm3 (4.5-10.0)
[2021-01-23 07:20] LABS: Anion Gap 9 mmol/L (8-16); Blood Urea Nitrogen 13 mg/dL (7-17); Calcium 9.4 mg/dL (8.4-10.2); Carbon Dioxide 29 mmol/L (22-30); Chloride 102 mmol/L (98-107); Estimated CRCL calculation 101 ml/min; Estimated Glomerular Filt Rate > 60; Glucose 108 mg/dL (65-110); Potassium 4.3 mmol/L (3.4-5.0); Sodium 140 mmol/L (137-145)
[2021-01-23 07:24] LABS: Partial Thromboplastin Time 68.7 SECONDS (22.3-36.8)
[2021-01-23] MEDS: HEPARIN SODIUM 5,000 UNITS/ML VIAL 3000 UNITS IV PUSH ×2 (08:36→16:32)
[2021-01-23] MEDS: HEPARIN SOD/D5W 100 UNITS/ML 25,000 UNITS/250 ML BAG 14 UNITS IV CONT ×2 (08:40→14:25)
[2021-01-23 09:46] LABS: NT Pro B Type Natriuretic Pept 24 pg/mL (5-100)
--- NOTE | 2021-01-23 10:39 | PM.IMPN ---
Progress Note: A&P Assessment and Plan (1) Pulmonary embolism: Code(s): I26.99 - Other pulmonary embolism without acute cor pulmonale Status: Acute Assessment and Plan: CT and symptoms consistent with large PE -echo does not show any evidence of heart strain and BNP is normal today -she states she feels a little worse compared to yesterday -will continue heparin drip -there is question to whether she is admitted to an outside area hospital or not. It was stated that she is on a waiting list per ER and H&P note but when I spoke with nursing staff they were told that it was canceled. I have the unit nurse group exercise manager checking on this - transfer was due to evaluation for vascular surgery or Interventional Radiology to see if she would benefit from catheter directed thrombolysis or other intervention given her young age. -no recent history of COVID symptoms -patient plans to follow up for genetic testing to ensure no genetic abnormalities that would have caused her PE Time Spent With Patient Time with patient: 25 - 35 minutes Subjective Date/time seen: 01/23/21 10:39 Interval history: Pt is a 25-year-old female here for PE. Patient was seen today and states she feels a little more short of breath today than she did yesterday. It is worse when she is moving around. She has some chest pain when she breathes in deeply. Pt denies nausea, vomiting, fevers, chills, constipation, diarrhea, or abdominal pain. Patient is not vaccinated and has not had any symptoms of COVID in the last few weeks. I did recommend getting the COVID vaccine after acute illness has improved Review of Systems Review of Systems: All systems reviewed & are unremarkable except as noted in HPI and below Exam Narrative: General: Well developed well nourished patient in NAD HEENT: normocephalic Neck: supple Neuro: Alert and oriented x4 CV:RRR. Telemetry shows occasional sinus tachycardia. Currently at 89 with 100% O2 Resp: CTA Abd: Soft, non distended. No pain to palpation. Positive bowel sounds Extremities: No swelling, erythema, or pain to palpation. Objective Data Vital Signs Vital Signs: Vital Signs - 24 hr 01/22/21 11:00 01/22/21 12:00 01/22/21 14:48 Temperature Pulse Rate 75 67 88 Respiratory Rate 17 17 21 H Blood Pressure 125/77 117/64 129/88 Pulse Oximetry 98 97 01/22/21 17:10 01/22/21 17:30 01/22/21 19:27 Temperature 97.8 F 97.4 F L Pulse Rate 66 85 77 Respiratory Rate 16 16 16 Blood Pressure 119/64 129/76 119/70 Pulse Oximetry 100 98 01/22/21 20:00 01/23/21 00:00 01/23/21 03:06 Temperature 98.8 F Pulse Rate 87 67 69 Respiratory Rate 16 16 Blood Pressure 100/52 L Pulse Oximetry 98 98 01/23/21 04:00 01/23/21 08:00 01/23/21 10:23 Temperature Pulse Rate 68 83 Respiratory Rate Blood Pressure Pulse Oximetry 98 Intake/Output Intake/Output: Intake & Output 01/20/21 01/21/21 01/22/21 01/23/21 23:59 23:59 23:59 23:59 Intake Total 1250 730 Output Total 600 Balance 1250 130 Meds/Results Medications: Active Medications Generic Name Dose Route Start Last Admin Trade Name Freq PRN Reason Stop Dose Admin Heparin Sodium (Porcine) 5,500 units 01/21/21 23:44 01/22/21 07:35 Heparin Sodium 5,000 Units/Ml Vial IV PUSH 5,500 units PRN PRN Administration aPTT less than 55 seconds Heparin Sodium (Porcine) 3,000 units 01/21/21 23:44 01/23/21 08:36 Heparin Sodium 5,000 Units/Ml Vial IV PUSH 3,000 units PRN PRN Administration aPTT 55 - 70 seconds Heparin Sodium/Dextrose 25,000 units in 250 mls @ 14 mls/hr 01/21/21 23:45 01/23/21 08:40 Heparin Sodium/D5w 100 Units/Ml IV CONT 1,400 units/hr .[id number] ALIVIA 14 mls/hr Administration Protocol 1,400 UNITS/HR Acetaminophen 1,000 mg in 100 mls @ 400 mls/hr 01/22/21 15:51 Ofirmev 1,000 Mg Ivpb IVPB 01/23/21 15:50 Q6H PRN Mild Pain (1-3) or Fever Ra
--- NOTE | 2021-01-23 14:18 | PDONCCN ---
HPI - Date of Consult Date/Time: 01/23/21 14:18 Requesting Physician: Neha Cooper PA-C Primary Care Provider: Demi Davis, PA - Consult Narrative Reason for consult: Unprovoked pulmonary embolism Narrative: Keshia Huston is a 25 year old female who has been in good health except history of preeclampsia came into the hospital with sudden onset of chest pain and shortness of breath without any provoking factors. She denies any recent travel injury and surgery. She denies use of any hormone therapy. She has IUD placed in the past. She is not very active but take care of [id number] child at home. She has no previous 3 history of thromboembolic events. There is a family history of stroke and DVT in the grandmother. She denies any history of smoking. No other new complaints. CT chest was performed that showed extensive left-sided pulmonary embolism with minimal right lower lobe pulmonary embolism. No hilar mediastinal lymphadenopathy. There was no evidence of right heart strain. She was started on heparin drip and feeling better but still have some chest discomfort. Review of Systems - Review of Systems All systems reviewed & are unremarkable except as noted in HPI and [facility] Medical History: Medical History (Last Reviewed 01/22/21 @ 22:16 by Jennifer Loera PA-C) Preeclampsia Onset Date: 03/2020 Surgical History: Surgical History (Last Reviewed 01/22/21 @ 22:16 by Jennifer Loera PA-C) History of tonsillectomy Onset Date: 08/2011 Family History: Family History (Last Reviewed 01/22/21 @ 22:16 by Jennifer Loera PA-C) Grandparent Diabetes mellitus Grandparent Cerebrovascular accident DVT (deep venous thrombosis) - Social History Social History: Social History (Last Updated 01/22/21 @ 22:17 by Jennifer Loera PA-C) Alcohol Use: Alcohol intake: never Substance Use: Substance use: never Substance use type: does not use Smoking Status: Smoking status: Never smoker Meds Home Medications Medication Instructions Recorded Confirmed Type No Home Medications 01/22/21 01/22/21 History Allergies Allergy/AdvReac Type Severity Reaction Status Date / Time No Known Allergies Allergy Verified 01/22/21 17:35 Results - Labs CBC & Chem 7: 01/23/21 07:00 01/23/21 07:00 Labs: Short CBC 01/23/21 Range/Units 07:00 WBC 6.6 (4.5-10.0) K/mm3 Hgb 15.4 H (12.0-15.0) g/dL Hct 45.6 (37.0-47.0) % Plt Count 217 (150-375) k/mm3 BMP 01/23/21 07:00 Sodium 140 Potassium 4.3 Chloride 102 Carbon Dioxide 29 BUN 13 Creatinine 0.80 Glucose 108 Calcium 9.4 Assessment and Plan - Additional Plan Hypercoagulable state with unprovoked pulmonary embolism. Patient is a pleasant 25-year-old female with no previous history of thromboembolic events. Patient patient has a family history of DVT in grandmother who also had a stroke. She came into the hospital with sudden onset of chest pain and shortness of breath without any provoking factors including recent injury surgery or prolonged traveling. She does not take any hormone replacement therapy. CTA chest showed extensive left-sided PE with minimal right lower lobe pulmonary embolism. She was started on heparin is already feeling better. Her vital signs remain stable. Plan was also noted for possible transfer to [facility] for evaluation for intervention Radiology/vascular surgery for thrombolysis therapy.I would recommend transition to Eliquis 10 mg twice a day for 1 week and then 5 mg twice a day. She will follow-up with me in the office in couple of weeks after discharge for checkup. Exam - Vital Signs Vital Signs - 24 hr 01/22/21 14:48 01/22/21 17:10 01/22/21 17:30 Temperature 36.6 C Pulse Rate 88 66 85 Respiratory Rate 21 H 16 16 Blood Pressure 129/88 119/64 129/76 Pulse Oximetry 100
[2021-01-23 16:25] LABS: Partial Thromboplastin Time 59.1 SECONDS (22.3-36.8)
[2021-01-23 23:05] LABS: Partial Thromboplastin Time 85.7 SECONDS (22.3-36.8)
[2021-01-24] VITALS (9 sets, daily range): BP systolic 118–148; BP diastolic 64–90; PULSE 54–118; RESP 14–20; TEMP 36.3–36.6; O2SAT 98–100
[2021-01-24 05:42] LABS: Hematocrit 42.9 % (37.0-47.0); Hemoglobin 14.5 g/dL (12.0-15.0)
[2021-01-24 05:50] LABS: Anion Gap 12 mmol/L (8-16); Blood Urea Nitrogen 12 mg/dL (7-17); Calcium 9.4 mg/dL (8.4-10.2); Carbon Dioxide 26 mmol/L (22-30); Chloride 102 mmol/L (98-107); Estimated CRCL calculation 115 ml/min; Estimated Glomerular Filt Rate > 60; Glucose 107 mg/dL (65-110); Potassium 3.8 mmol/L (3.4-5.0); Sodium 140 mmol/L (137-145)
[2021-01-24 05:59] LABS: NT Pro B Type Natriuretic Pept 21 pg/mL (5-100)
[2021-01-24 06:00] LABS: Partial Thromboplastin Time 90.6 SECONDS (22.3-36.8)
[2021-01-24] MEDS: HEPARIN SOD/D5W 100 UNITS/ML 25,000 UNITS/250 ML BAG 15 UNITS IV CONT (07:15)
--- NOTE | 2021-01-24 16:28 | PM.IMPN ---
Progress Note: A&P Assessment and Plan (1) Pulmonary embolism: Code(s): I26.99 - Other pulmonary embolism without acute cor pulmonale Status: Acute Assessment and Plan: CT and symptoms consistent with large PE -echo does not show any evidence of heart strain and BNP is normal on 01/23. -Due to size of thrombus, there is a strong consideration for thrombolysis. -she states she feels a lot better compared to yesterday -will continue heparin drip - transfer for evaluation for vascular surgery or Interventional Radiology to see if she would benefit from catheter directed thrombolysis or other intervention given her young age. -no recent history of COVID symptoms -patient plans to follow up for genetic testing to ensure no genetic abnormalities that would have caused her PE Subjective Date/time seen: 01/24/21 16:28 Interval history: Pt is a 25-year-old female here for PE. Patient was seen today and states she feels a little more short of breath today than she did yesterday. It is worse when she is moving around. She has some chest pain when she breathes in deeply. Pt denies nausea, vomiting, fevers, chills, constipation, diarrhea, or abdominal pain. Patient is not vaccinated and has not had any symptoms of COVID in the last few weeks. I did recommend getting the COVID vaccine after acute illness has improved Review of Systems Review of Systems: This is a 25-year old lady with a history of preeclampsia diagnosed with an extensive left-sided pulmonary embolism with minimal right lower lobe pulmonary embolism. There is no evidence of right heart strain. She was started on heparin drip and feeling better; no chest discomfort. All systems reviewed & are unremarkable except as noted in HPI and below Integumentary/Breasts: Skin/Breast: Reports system reviewed and no additional complaints, except as docu Neurologic: Reports system reviewed and no additional complaints, except as documented Exam Narrative: General: Well developed well nourished patient in NAD HEENT: normocephalic Neck: supple Neuro: Alert and oriented x4 CV:RRR. Telemetry shows occasional sinus tachycardia. Currently at 100 on room air. Abd: Soft, non distended. No pain to palpation. Positive bowel sounds Extremities: No swelling, erythema, or pain to palpation. Objective Data Vital Signs Vital Signs: Vital Signs - 24 hr 01/23/21 20:00 01/23/21 21:17 01/24/21 00:00 Temperature 97.7 F Pulse Rate 75 72 54 L Respiratory Rate 18 Blood Pressure 125/67 Pulse Oximetry 100 01/24/21 04:00 01/24/21 05:00 01/24/21 08:00 Temperature 97.9 F Pulse Rate 60 79 71 Respiratory Rate 14 Blood Pressure 118/64 Pulse Oximetry 100 01/24/21 12:00 01/24/21 14:00 Temperature 97.6 F Pulse Rate 118 H 85 Respiratory Rate 16 Blood Pressure 140/69 Pulse Oximetry 100 Intake/Output Intake/Output: Intake & Output 01/21/21 01/22/21 01/23/21 01/24/21 23:59 23:59 23:59 23:59 Intake Total 1250 2510 910 Output Total 2750 Balance 1250 -240 910 Meds/Results Medications: Active Medications Generic Name Dose Route Start Last Admin Trade Name Freq PRN Reason Stop Dose Admin Hydrocodone Bitart/Acetaminophen 1 tab 01/23/21 18:13 Hydrocodone/Acetaminophen (*Crx) 5-325 Mg Tablet PO Q4H PRN Pain Rated 4-6 Heparin Sodium (Porcine) 5,500 units 01/21/21 23:44 01/22/21 07:35 Heparin Sodium 5,000 Units/Ml Vial IV PUSH 5,500 units PRN PRN Administration aPTT less than 55 seconds Heparin Sodium (Porcine) 3,000 units 01/21/21 23:44 01/23/21 16:32 Heparin Sodium 5,000 Units/Ml Vial IV PUSH 3,000 units PRN PRN Administration aPTT 55 - 70 seconds Heparin Sodium/Dextrose 25,000 units in 250 mls @ 14 mls/hr 01/23/21 14:30 01/24/21 07:15 Heparin Sodium/D5w 100 Units/Ml IV CONT 1,500 units/hr .[id number] ALIVIA 15 mls/hr Administration Protocol 1,400 UNITS/HR
--- NOTE | 2021-01-24 18:02 | PC.NURSE ---
I received several phone calls today from the [facility] transfer department with the final call at approximately 1800 at which time I was informed that pt would have to be admitted into their ICU and it could be several weeks before they have an ICU bed open up; she will remain on their list, however, it is strongly encouraged that we find another transfer placement for pt at another hospital. I contacted the hospitalist, Dr. Carranza, and informed her of the status of the situation.
[2021-01-25] VITALS (9 sets, daily range): BP systolic 113–128; BP diastolic 60–79; PULSE 52–77; RESP 18–21; TEMP 36.2–36.3; O2SAT 99–100
[2021-01-25] MEDS: HEPARIN SOD/D5W 100 UNITS/ML 25,000 UNITS/250 ML BAG 15 UNITS IV CONT (00:49)
[2021-01-25] MEDS: ALPRAZolam (*CRX) 0.5 MG TABLET PO (02:07)
--- NOTE | 2021-01-25 09:34 | PM.IMPN ---
Progress Note: A&P Assessment and Plan (1) Pulmonary embolism: Code(s): I26.99 - Other pulmonary embolism without acute cor pulmonale Status: Acute Assessment and Plan: CT and symptoms consistent with massive PE -echo does not show any evidence of heart strain and BNP is normal on 01/23. -Due to size of thrombus, there is a strong consideration for thrombolysis. -she states she feels better compared to yesterday -will continue heparin drip - transfer for evaluation for vascular surgery or Interventional Radiology to see if she would benefit from catheter directed thrombolysis or other intervention given the clot burden. -no recent history of COVID symptoms -patient plans to follow up for genetic testing to ensure no genetic abnormalities that would have caused her PE. -Patient has a 10-month old daughter and was counseled regarding contraception given recent PE diagnosis. Subjective Date/time seen: 01/25/21 09:34 Interval history: Pt is a 25-year-old lady admitted for massive PE. Patient was seen today and states she feels chest pain and shortness of breath with activity. She looks very comfortable at rest. She is agreeable to transfer plans for thrombolysis. Review of Systems Review of Systems: All systems reviewed & are unremarkable except as noted in HPI and below Integumentary/Breasts: Skin/Breast: Reports system reviewed and no additional complaints, except as docu Neurologic: Reports system reviewed and no additional complaints, except as documented Exam Narrative: General: Well developed well nourished patient in NAD HEENT: normocephalic Neck: supple Neuro: Alert and oriented x4 CV:RRR. Telemetry shows occasional sinus tachycardia. Currently at 100 on room air. Abd: Soft, non distended. No pain to palpation. Positive bowel sounds Extremities: No swelling, erythema, or pain to palpation. Objective Data Vital Signs Vital Signs: Vital Signs - 24 hr 01/24/21 12:00 01/24/21 14:00 01/24/21 16:00 Temperature 97.6 F Pulse Rate 118 H 85 88 Respiratory Rate 16 Blood Pressure 140/69 Pulse Oximetry 100 01/24/21 20:00 01/24/21 22:00 01/25/21 00:00 Temperature 97.4 F L Pulse Rate 92 74 63 Respiratory Rate 20 Blood Pressure 148/90 H Pulse Oximetry 98 01/25/21 04:00 01/25/21 06:00 Temperature 97.4 F L Pulse Rate 65 52 L Respiratory Rate 21 H Blood Pressure 128/60 Pulse Oximetry 100 Intake/Output Intake/Output: Intake & Output 01/22/21 01/23/21 01/24/21 01/25/21 23:59 23:59 23:59 23:59 Intake Total 1250 2510 1770 790 Output Total 2750 Balance 1250 -240 1770 790 Meds/Results Medications: Active Medications Generic Name Dose Route Start Last Admin Trade Name Freq PRN Reason Stop Dose Admin Hydrocodone Bitart/Acetaminophen 1 tab 01/23/21 18:13 Hydrocodone/Acetaminophen (*Crx) 5-325 Mg Tablet PO Q4H PRN Pain Rated 4-6 Heparin Sodium (Porcine) 5,500 units 01/21/21 23:44 01/22/21 07:35 Heparin Sodium 5,000 Units/Ml Vial IV PUSH 5,500 units PRN PRN Administration aPTT less than 55 seconds Heparin Sodium (Porcine) 3,000 units 01/21/21 23:44 01/23/21 16:32 Heparin Sodium 5,000 Units/Ml Vial IV PUSH 3,000 units PRN PRN Administration aPTT 55 - 70 seconds Heparin Sodium/Dextrose 25,000 units in 250 mls @ 14 mls/hr 01/23/21 14:30 01/25/21 00:49 Heparin Sodium/D5w 100 Units/Ml IV CONT 1,500 units/hr .[id number] ALIVIA 15 mls/hr Administration Protocol 1,400 UNITS/HR Loperamide HCl 2 mg 01/23/21 18:15 Loperamide Hcl 2 Mg Capsule PO PRN PRN Diarrhea Radiology Results: ITS Impressions Chest X-Ray 01/21/21 18:33 IMPRESSION: Negative Chest CTA 01/21/21 23:39 IMPRESSION: Extensive left-sided pulmonary embolism, minimal right lower lobe pulmonary Dr. Tarango telephoned the report of pulmonary embolism on 01/21/2021 at 2342 hours to emergency room physi
[2021-01-25 09:46] LABS: Partial Thromboplastin Time 56.6 SECONDS (22.3-36.8)
[2021-01-25] MEDS: HEPARIN SODIUM 5,000 UNITS/ML VIAL 3000 UNITS IV PUSH (10:11)
[2021-01-25 16:32] LABS: Partial Thromboplastin Time 78.9 SECONDS (22.3-36.8)
[2021-01-25] MEDS: HEPARIN SOD/D5W 100 UNITS/ML 25,000 UNITS/250 ML BAG 16 UNITS IV CONT (17:12)
[2021-01-25 23:21] LABS: Partial Thromboplastin Time 91.5 SECONDS (22.3-36.8)
[2021-01-26] VITALS (10 sets, daily range): BP systolic 124–134; BP diastolic 57–66; PULSE 68–92; RESP 20; TEMP 36.4–36.7; O2SAT 97–99
[2021-01-26 06:17] LABS: Partial Thromboplastin Time 109.9 SECONDS (22.3-36.8)
[2021-01-26] MEDS: HEPARIN SOD/D5W 100 UNITS/ML 25,000 UNITS/250 ML BAG 15 UNITS IV CONT (10:06)
[2021-01-26 10:58] LABS: Glucose Point of Care 96 mg/dl (65-105)
[2021-01-26 14:12] LABS: Partial Thromboplastin Time 29.2 SECONDS (22.3-36.8)
[2021-01-26] MEDS: HEPARIN SODIUM 5,000 UNITS/ML VIAL 5500 UNITS IV PUSH (14:59)
--- NOTE | 2021-01-26 16:42 | PM.CNPUL ---
Assessment and Plan Assessment and plan (1) Pulmonary embolism: Code(s): I26.99 - Other pulmonary embolism without acute cor pulmonale Status: Acute Assessment and Plan: Patient is currently 7 days into her large left-sided pulmonary emboli and right lower lobe pulmonary emboli initially without hemodynamic compromise, no hypoxemia, troponin negative, BNP 24, echo without right heart strain and negative dopplers. Now with resolved pleuritic chest pain but continued shortness of breath and tachycardia. At this time I feel the best treatment is continuation of anticoagulation would transition patient to a direct acting oral anticoagulant that her insurance will cover. I would perform a home O2 assessment to ensure that hypoxemia is not a cause for her continued dyspnea on exertion. Hematology has consulted and will follow the patient up for further hypercoagulable workup. Discussed with Dr. Carranza. Will sign off, please call with questions. History of Present Illness History of Present Illness Consult date: 01/26/21 Reason for consult: pulmonary embolism Chief complaint: pulmonary embolism Narrative: this is a new Pulmonary consult for PE 25-year-old female previously healthy except for preeclampsia 10 months ago presented with shortness of breath and was found to have extensive left-sided pulmonary embolism and right lower lobe pulmonary embolism on 01/21/2021. Patient was hemodynamically stable, room air saturations were 97 and 99%, troponins were negative x3. Echocardiogram on 01/22 showed normal left ventricular function with an EF of 60-65%, Normal right ventricular size and function and an estimated pulmonary arterial systolic pressure 41. Patient has been treated with IV heparin. Per the hospitalist an outside referral was made for possible thrombolysis or intervention and the case was reviewed and the recommendation was to continue anticoagulation. The patient does state today that her pleuritic chest pain resolved about 3 days into her hospitalization. patient denies any rest shortness of breath. Patient states that her dyspnea on exertion Is unchanged since she came to the hospital and she gets short of breath when she walks around her room. Patient also is noted to have some exertional tachycardia. Patient denies any fever, chills, rigors, phlegm production, cough or chest pain currently. Patient denies any rashes. Regarding the etiology of her blood clots the patient has had no previous blood clots. Patient uses an IUD and does not take oral control pills, patient has taken no long car or plane rides, patient has had no previous operations and has had not been bed-bound recently. Patient tells me that her grandmother had a clot in her leg but there has been no clotting in her either of her parents or her 2 brothers or 1 sister and that her baby girl is [id number] and healthy at this time. DATA: EXAMINATION: US venous doppler [facility] EXAM DATE: 01/22/2021 08:14 INDICATION: Shortness of breath, chest pain, cough and elevated d-dimer. Pulmonary embolism. TECHNIQUE: Multiple grayscale, color flow and Doppler images of the lower extremity deep venous systems bilaterally were obtained and reviewed. There is no prior study for comparison. FINDINGS: Right side: The right common femoral, femoral and profunda veins demonstrate normal color flow, respiratory variation, augmentation and compressibility. Compressibility, color flow confirmed within the right popliteal, posterior tibial, peroneal, and greater saphenous veins. Left side: The left common femoral, femoral and profunda veins demonstrate normal color flow, respiratory variation, augmentation and compressibility. Compressibility, color flow confirmed within the left popliteal, posterior tibial, peroneal, and greater saphenous veins. IMPRESSION: 1. No lower extremity deep venous thro
[2021-01-26] MEDS: RIVAROXABAN 15 MG TABLET PO (19:27)
[2021-01-27] VITALS (7 sets, daily range): BP systolic 113; BP diastolic 64; PULSE 69–109; RESP 20; TEMP 37.2; O2SAT 95–99
[2021-01-27] MEDS: RIVAROXABAN 15 MG TABLET PO (08:18)
--- NOTE | 2021-02-01 21:04 | PM.DS ---
DS: Admitting Diagnosis Discharge Date 01/27/21 Admitting Diagnosis Acute pulmonary embolism DS: Discharge Diagnosis Discharge Diagnosis (1) Pulmonary embolism: Code(s): I26.99 - Other pulmonary embolism without acute cor pulmonale Status: Acute Assessment and Plan: CT and symptoms consistent with massive PE -echo does not show any evidence of heart strain and BNP is normal on 01/23. -Due to size of thrombus, there is a strong consideration for thrombolysis. -she states she feels better compared to yesterday -will continue heparin drip - transfer for evaluation for vascular surgery or Interventional Radiology to see if she would benefit from catheter directed thrombolysis or other intervention given the clot burden. -no recent history of COVID symptoms -patient plans to follow up for genetic testing to ensure no genetic abnormalities that would have caused her PE. -Patient has a 10-month old daughter and was counseled regarding contraception given recent PE diagnosis. DS: Summary Hospital Course Reason for hospitalization: shortness of breath Hospital Course: This is a very pleasant 25-year-old female without significant medical history presented to the emergency department earlier today via private vehicle from home for evaluation of chest pain shortness of breath. Chest CTA done on arrival to the emergency department showed extensive left-sided pulmonary embolism including the main pulmonary artery, proximal left upper lobe, extensive left lower lobe arterial branches and evidence of minimal right lower lobe pulmonary emboli. She was started on a heparin drip and she has been boarding in the emergency department since last evening as it was felt that she should be evaluated by vascular surgery or Interventional Radiology at a tertiary care facility for possible intervention given her clot burden in her young age. Echocardiogram did not show any evidence of a right heart strain. She experienced some tachycardia that may be related to the pulmonary embolism, with a component of anxiety. Case was discussed with Dr Cannon; she was deemed not to be a candidate for thrombolysis. She was evaluated by oncology service and pulmonary service. Patient received 7 days of heparin for her large left-sided pulmonary emboli and right lower lobe pulmonary emboli initially without hemodynamic compromise, no hypoxemia, troponin negative, BNP 24, echo without right heart strain and negative dopplers. She experienced pleuritic chest pain which later resolved but continued shortness of breath and tachycardia. She was transitioned to NOACs and discharged home to follow up with her primary care physician within 7 days of discharge. Status at Discharge Functional status at discharge: independent ambulation Time Spent with Patient Time attestation: Total time spent providing and/or coordinating discharge services: Exam Narrative: General: Well developed well nourished patient in NAD HEENT: normocephalic Neck: supple Neuro: Alert and oriented x4 CV:RRR. Telemetry shows occasional sinus tachycardia. Currently at 100 on room air. Abd: Soft, non distended. No pain to palpation. Positive bowel sounds Extremities: No swelling, erythema, or pain to palpation. DS: Data Data Completed and Pending Completed studies during hospitalization: ITS Impressions Chest X-Ray 01/21/21 18:33 IMPRESSION: Negative Chest CTA 01/21/21 23:39 IMPRESSION: Extensive left-sided pulmonary embolism, minimal right lower lobe pulmonary Dr. Tarango telephoned the report of pulmonary embolism on 01/21/2021 at 2342 hours to emergency room physician Dr. Jacinto. Venous Doppler Study 01/22/21 08:16 IMPRESSION: 1. No lower extremity deep venous thrombosis bilaterally. Discharge Plan Discharge Attending physician on discharge: Albina Carranza Consulting providers: Saman Smith ; Mario Hdz ; Jennifer Loera ; Neha Cooper
--- NOTE | 2021-02-20 09:14 | P.PNIM_ITS ---
Progress Note: A&P Assessment and Plan (1) Pulmonary embolism: Code(s): I26.99 - Other pulmonary embolism without acute cor pulmonale Status: Acute Assessment and Plan: CT and symptoms consistent with massive PE -echo does not show any evidence of heart strain and BNP is normal on 01/23. -Due to size of thrombus, there is a strong consideration for thrombolysis. -she states she feels better compared to yesterday -will continue heparin drip - transfer for evaluation for vascular surgery or Interventional Radiology to see if she would benefit from catheter directed thrombolysis or other intervention given the clot burden. -no recent history of COVID symptoms -patient plans to follow up for genetic testing to ensure no genetic abnormalities that would have caused her PE. -Patient has a 10-month old daughter and was counseled regarding contraception given recent PE diagnosis. Subjective Date/time seen: 01/26/2021 09:00AM Interval history: Pt is a 25-year-old lady admitted for massive PE. Patient was seen today and states she feels chest pain and shortness of breath with a ctivity. She looks very comfortable at rest. She is agreeable to transfer plans for thrombolysis. Review of Systems Review of Systems: All systems reviewed & are unremarkable except as noted in HPI and below Integumentary/Breasts: Skin/Breast: Reports system reviewed and no additional complaints, except as docu Neurologic: Reports system reviewed and no additional complaints, except as documented Exam Narrative: General: Well developed well nourished patient in NAD HEENT: normocephalic Neck: supple Neuro: Alert and oriented x4 CV:RRR. Telemetry shows occasional sinus tachycardia. Currently at 100 on room air. Abd: Soft, non distended. No pain to palpation. Positive bowel sounds Extremities: No swelling, erythema, or pain to palpation. Objective Data Meds/Results Radiology Results: ITS Impressions Chest X-Ray 01/21/21 18:33 IMPRESSION: Negative Chest CTA 01/21/21 23:39 IMPRESSION: Extensive left-sided pulmonary embolism, minimal right lower lobe pulmonary Dr. Tarango telephoned the report of pulmonary embolism on 01/21/2021 at 2342 hours to emergency room physician Dr. Jacinto. Venous Doppler Study 01/22/21 08:16 IMPRESSION: 1. No lower extremity deep venous thrombosis bilaterally. Quality VTE Prophylaxis VTE prophylaxis: pharmacologic ordered
== END 2021-01-27 11:52 | disposition home or self-care (01) | DRG 134 ==
LOC: ANHED 01-22 09:02 → ANH2MED 01-22 16:47
PROVIDERS: Emergency Medicine; Family Medicine; Internal Medicine; Physician Assistant; Admitting Provider Internal Medicine; Emergency Provider Emergency Medicine; PCP Physician Assistant; Visit Provider Internal Medicine
DX: I26.99 Other pulmonary embolism without acute cor pulmonale (principal); Z20.822 Contact with and (suspected) exposure to COVID-19; Z97.5 Presence of (intrauterine) contraceptive device; Z82.3 Family history of stroke; Z86.79 Personal history of other diseases of the circulatory system
CPT/HCPCS: 36415; 71046; 71275; 80048; 81025; 82948; 83880; 84484; 85014; 85018; 85025; 85027; 85380; 85610; 85730; 93005; 93306; 93970; 94618; 96361; 96365; 96366; 96374; 99285; A9270; C9803; G0378; G0379; J1644; J1885; J7030; Q9967; U0003; U0005

== ENCOUNTER 2021-09-22 10:59 | Outpatient (CLI) | payer OTHER, SELFPAY ==
[2021-09-22 11:36] LABS: Basophils Absolute Auto 0.1 K/mm3 (0.0-0.1); Basophils Percent Auto 0.8 % (0.2-1.2); Eosinophils Absolute Auto 0.2 K/mm3 (0-0.3); Hematocrit 40.6 % (37.0-47.0); Hemoglobin 13.5 g/dL (12.0-15.0); Immature Granulocyte Absolute 0.03 K/mm3 (0.00-0.031); Immature Granulocyte Percent A 0.5 % (0-0.5); Lymphocytes Absolute Auto 2.14 K/mm3 (0.9-3.2); Lymphocytes Percent Auto 35.6 % (18.3-44.2); Mean Corpuscular HGB Conc 33.3 g/dl (32-36); Mean Corpuscular Hemoglobin 28.8 pg (26-34); Mean Corpuscular Volume 86.6 fl (80-100); Mean Platelet Volume 9.8 fl (7.4-10.4); Monocytes Absolute Auto 0.3 K/mm3 (0.1-0.6); Monocytes Percent Auto 4.5 % (2.6-8.5); Neutrophils Absolute Auto 3.3 K/mm3 (1.3-6.7); Neutrophils Percent Auto 55.6 % (45.5-73.1); Platelet Count Result 289 k/mm3 (150-375); Red Blood Count 4.69 M/mm3 (4.2-5.4); Red Cell Distribution Width 12.9 % (11.5-14.5)
[2021-09-22 11:49] LABS: Alanine Aminotransferase 26 U/L (6-35); Albumin Level 4.2 g/dL (3.5-5.1); Alkaline Phosphatase 56 U/L (38-126); Anion Gap 6 mmol/L (8-16); Aspartate Amino Transferase 33 U/L (14-36); Bilirubin,Total 0.4 mg/dL (0.2-1.3); Blood Urea Nitrogen 12 mg/dL (7-17); Carbon Dioxide 29 mmol/L (22-30); Chloride 104 mmol/L (98-107); Estimated Glomerular Filt Rate > 60; Glucose 96 mg/dL (65-110); Sodium 139 mmol/L (137-145)
== END 2021-09-22 11:00 | disposition home or self-care (01) ==
LOC: ANHLAB 11:03
PROVIDERS: PCP Physician Assistant; Visit Provider Physician Assistant
DX: R53.83 Other fatigue (principal)
CPT/HCPCS: 36415; 80053; 85025